=== PATIENT | male | born 1955 | race Caucasian/White ===

== ENCOUNTER 2023-10-12 10:07 | Outpatient (CLI) | payer MEDICARE, SELFPAY ==
--- NOTE | 2023-10-12 10:15 | CRLHL7_ITS ---
For Patients: As a result of the Century Cures Act, medical imaging exams and procedure reports are released immediately into your electronic medical record. You may view this report before your referring provider. If you have questions, please contact your health care provider. Indication: Left hip pain Procedure : Informed consent was obtained. The site was marked. Time-out was performed. The skin of the left hip was cleansed with ChloraPrep. A sterile drape was placed. 8 cc of 1 percent lidocaine was administered for superficial anesthesia. Subsequently a 22 gauge spinal needle was introduced into the left hip joint under intermittent fluoroscopic guidance 7 cc 1 percent lidocaine and 2 cc 80 milligram/cc Depo-Medrol then injected into the left hip joint. The needle was removed and hemostasis achieved with direct pressure. A dressing was placed. The patient tolerated the procedure well without immediate complication. Total fluoroscopy time 18 seconds. Impression: Successful fluoroscopically guided left hip injection with 80 milligrams of Depo-Medrol. Dictated by Rehan Cramer MD @ 10/12/2023 11:34:53 AM (Electronically Signed)
== END 2023-10-12 10:08 | disposition home or self-care (01) ==
LOC: RAD 10:08
PROVIDERS: PCP Family Medicine; Visit Provider Orthopaedic Surgery Sports Medicine
DX: M25.552 Pain in left hip (principal); M16.12 Unilateral primary osteoarthritis, left hip
CPT/HCPCS: 20610; 77002; J1030; Q9966

== ENCOUNTER 2023-11-14 09:30 | Outpatient (RCR) | payer MEDICARE, SELFPAY ==
--- NOTE | 2023-10-16 12:14 | PT.OPEX ---
[facility] [place] Outpatient Eval PT [facility] Outpatient Eval Start: 10/16/23 08:12 Freq: Status: Active Protocol: Document 10/16/23 08:13 AMS (Rec: 10/16/23 12:10 AMS [id number]) E-signed By Latricia Hall, PT Physical Therapy Outpatient Evaluation Insurance Information Recert Due Date 01/09/24 Insurance Name Medicare B,[employer] [facility] Medical Diagnosis Left hip osteoarthritis Treating Diagnosis Left hip pain Muscle weakness Left hip stiffness Difficulty walking Referring MD Artem Logan Subjective Subjective Van is a new patient in my office today. He is a pleasant 68yr old male. Presents with left hip pain. There is an asl interpreter present today. He states he is having sharp groin pain. He had an x-ray taken last week with Dr. Muller , in which Dr. Muller thought it was significant, but the radiologist read his osteoarthritis as mild. The pain is sharp, intermittent and relieves with rest. The pain is worse with bowling. The patient has tried Tylenol/ oral NSAIDs, rest, activity modification all with minimal and non-lasting relief. He is hoping to avoid surgery at this time. -Dr. Logna, , confirmed by patient Patient is a 68-year-old male who presents to physical therapy with primary concern of chronic left hip pain. This came on gradually in the last year, worsening this past month, without any known injury. He states the pain came on last fall when he was active with bowling and pickleball 1x/week. It is hard to walk the day after these activities and sore, so he no longer plays. He had an x-ray- guided cortisone injection on 10/12, and he reports some improvement with the injection ( or 04/27 to 3). Denies back pain or numbness/tingling . Pain characteristics: localized to the groin on left , aching, constant, improved with rest. Aggravating factors: bowling, walking longer than a block ( prior to injection), pickleball, squatting, sleeping on left side, lifting , standing, jogging Easing factors: rest, injection Prior level of function: independent for all mobility without gait aid, has cane but doesn't use it Previous treatments: cortisone injection (helpful), Aleve ( not helpful) Current functional limitations : bowling, walking longer than a block (prior to injection), pickleball, squatting, sleeping on left side, lifting , standing, jogging Red flags: denies hx of cancer Imaging: AP Pelvis and Cross- table lateral views of the left hip were obtained on 2023 from [facility], were ordered by a different physician, were reviewed by me on his phone, were corroborated with the radiology report, and show moderate osteoarthrosis left hip seen with joint space narrowing near the far lateral aspect of the hip joint of 50 -66%. Otherwise, decently preserved joint space centrally. No acute fractures avulsions. Small osteophytes . No signs of AVN. -Dr. Logan, 10/03/23 PMHx: right hip replacement 2016, bilateral knee replacements 2011 and 2013, mild stroke 25 years ago, now on blood thinners Social history/current exercise: None due to pain; previous to pain, walking the dogs a mile daily, pickleball 1x/week. , lives in one -level house, enjoys playing with his grandkids. Goals: He would like to avoid surgery if possible and improve pain and mobility. 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 BALANCE Single leg stance: ~1 sec B FUNCTIONAL MOBILITY Double leg squat: to 45 deg, pain in left hip/bilateral knees KNEE ROM Within normal limits B END RANGE QUAD CONTROL Straight leg raise: No quad lag, mild pain on L LUMBAR ROM Full and pain-free w/ exception of 50% limited into L lumbar rotation HIP ROM (R/L) Flexion: Mildly limited L Extension: Mildly limited B d/ t hip flexor tightness Internal Rotation: WNL/0 deg* External Rotation: WNL/WNL *pain in groin LE MMT: Hip flexion: R 5/5 L */5, strong but painful Hip abduction: R 4/5 L 3+/5 Hip extension: Able to perform DL bridge Knee flexion: R 5/5 L 4+/5 w/ mild discomfort Knee extension: R 5/5 L 4+/5 *pain in groin SPECIAL TEST Hip Labral/Intra-articular Pathology: -GMAALIEL: + left, groin -FADIR: + left, groin Muscle Length: -David Test: + B JOINT MOBILITY/PALPATION Mild tenderness to palpation over ASIS/hip flexor musculature on left, none over lateral hip Functional Test Performed & Score LEFS: 33/80 = 41% Assessment Assessment/Impression Pt is a 68 -year-old male who presents with concerns of chronic left hip pain and moderate to high severity and irritability. Signs and symptoms are likely indicating / consistent with left hip osteoarthritis confirmed by imaging. On exam, patient also demonstrates notable objective findings including limited hip ROM, pain with active hip flexion, impaired balance, antalgic gait, and decreased hip strength, leading to difficulties with bowling, walking longer than a block (prior to injection), pickleball, squatting, sleeping on left side, lifting , standing, jogging. Pt had x- ray guided cortisone injection 4 days ago with significant improvement in symptoms. asl interpreter was utilized and present for session. Educated pt on graded return to more active lifestyle, starting with 5-10 min per day of walking as symptoms allow. Patient is appropriate for skilled physical therapy services to address the above deficits. Pt was agreeable with plan of care and goals established. Primary Functional Limitations bowling, walking longer than a block, pickleball, squatting, sleeping on left side, lifting, standing, jogging Plan of Care Rehabilitation Potential Good Physical Therapy Goals In 2 sessions: Pt will demonstrate consistent HEP compliance to ensure progress in reaching established goals during course of care. In 8-10 sessions: Pt will be able to bend and lift household items from the floor to shoulder height to perform ADLs without pain. Patient will squat with pain levels < 3/10 displaying good control in order to participate in recreational activities. Pt will be able to walk up to or >1 mile with <4/10 pain. Pt will improve LEFS by 9pts for significant, meaningful improvement in symptoms. Coordination/Communication With Referral Source Treatment Plan/Direct Interventions Gait Training,Joint Mobilization,Manual Therapy, Neuromuscular Re-ed,Self-Care/ Home Management,Therapeutic Activities,Therapeutic Exercises Frequency/Duration 1x/week for 8-10 sessions Patient Will Be Discharged From Therapy Completion of LTG(s), Independent w/HEP, Independently Progressing Evaluation Billing Untimed Code Treatment Minutes 20 Complexity Moderate Certification Information Initial Certification Date 10/16/23 Ending Certification Date 01/14/24 Provider Signature Shows Agreement With POC & Medical Necessity Physician Signature & Date Requested Please Sign/Date Here Physician Comment/Change : Physician NPI Number #
== END 2024-01-09 10:31 | disposition home or self-care (01) ==
PROVIDERS: PCP Family Medicine; Visit Provider Orthopaedic Surgery Sports Medicine
DX: M16.12 Unilateral primary osteoarthritis, left hip (principal); M25.552 Pain in left hip; M62.81 Muscle weakness (generalized); M25.652 Stiffness of left hip, not elsewhere classified; R26.2 Difficulty in walking, not elsewhere classified; Z51.89 Encounter for other specified aftercare
CPT/HCPCS: 97110; 97140; 97162; 97530

== ENCOUNTER 2024-10-17 10:38 | Emergency (ER) | payer MEDICARE, SELFPAY ==
[2024-10-17] VITALS (11 sets, daily range): BP systolic 86–103; BP diastolic 61–71; PULSE 79–102; RESP 18; TEMP 37; O2SAT 94–96; BMI 34.0
--- OUTSIDE RECORDS SUMMARY | 2024-10-17 10:41 | XMS_ITS | Clinical Summary ---
Author Organization [facility] Address [place], [place] [address] Care Team Providers Care Manager Transfer Name Role Phone Josefina Crum DO Primary Care Provider [phone] Allergies No known active allergies Medications cyanocobalamin 1,000 mcg tablet Take 2,000 mcg by mouth once daily. Active aspirin (ECOTRIN) 81 mg enteric coated tablet Take 1 tablet by mouth once daily with a meal. 0 0 Active cholecalciferol (VITAMIN D) 1,000 unit capsule Take 1 capsule by mouth once daily. 0 0 Active ferrous sulfate 325 mg delayed release tablet Take 1 Tablet (325 mg) by mouth once daily with a meal. 90 Tablet 3 2 Active diclofenac topical (VOLTAREN) 1 % gelIndications:Chr onic pain of right knee Apply 2 g topically to affected area(s) 4 times daily. Apply to ankles 100 g 1 2 Active amLODIPine (NORVASC) 10 mg tabletIndications: Coronary artery calcification TAKE 1 TABLET BY MOUTH EVERY DAY 90 Tablet 2 4 Active clopidogreL (PLAVIX) 75 mg tabletIndications: H/O: CVA (cerebrovascular accident) TAKE 1 TABLET BY MOUTH ONCE DAILY. 90 Tablet 3 4 Active atorvastatin (LIPITOR) 10 mg tabletIndications: Hyperlipidemia, unspecified hyperlipidemia type TAKE 1 TABLET BY MOUTH EVERY DAY 90 Tablet 2 4 Active metoprolol succinate (TOPROL XL) 25 mg Sustained-Release tabletIndications: HTN (hypertension),Cor onary artery calcification Take 1 Tablet (25 mg) by mouth once daily. 90 Tablet 3 4 Active omeprazole (PRILOSEC) 20 mg Delayed-Release capsuleIndications :Gastritis and duodenitis Take 1 Capsule (20 mg) by mouth once daily before a meal. 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 Thought to be secondary to dirty needle use with tattoo. Deafness 02/17/2012 Hyperlipidemia 02/17/2012 H/O: CVA (cardiovascular accident) 02/17/2012 Encounters Date Type Department Care Team Description 10/17/2024 Orders Only [facility] [address] [place] [address] Emma Lamar, DO <No scans attached> 10/16/2024 1:30 PM RENAL DIETITIAN Nurse/Clinic Staff Only [facility] [address] [place] [place] [address] Infusion Therapy (Normal saline) 10/16/2024 7:43 AM RENAL DIETITIAN - 10/16/2024 11:59 PM RENAL DIETITIAN Hospital Encounter [facility] [address] [address] 10/16/2024 7:30 AM RENAL DIETITIAN Orders Only [facility] [address] [address] Lab, [facility] 10/16/2024 Travel 10/15/2024 Travel 10/15/2024 Telephone [facility] [address] [place] [address] Emma Lamar DO Appointment 10/14/2024 4:20 PM RENAL DIETITIAN Office Visit [facility] [address] [place] [address] Emma Lamar DO Stomach Ache (upset stomach); Fatigue 10/14/2024 Travel 09/27/2024 1:55 PM RENAL DIETITIAN Office Visit [facility] [address] [place] [address] Therese Ying MD URI (cough, Diarrhea, Started 2 weeks ago, no appetite ) 09/27/2024 Travel 08/09/2024 8:00 AM RENAL DIETITIAN Ancillary Procedure [facility] [address] [place] [address] 08/09/2024 Travel 07/30/2024 10:00 AM RENAL DIETITIAN Office Visit [facility] [address] [place] [address] Beverly Green MD Follow Up (Hyperlipidemia/Aor ta dilatation /US 04/18/2024) 07/30/2024 Travel from Last 3 Months Immunizations Name Administration Dates Next Due COVID-19 vaccine (Moderna 100mcg/0.5mL) PF, MDV 11/20/2020,10/23/2020 DT (Age < 7 years) 12/24/1999 Dtap-5 Pertussis Antigens 12/24/1999 Hepatitis A (Adult) 12/27/2007,12/27/2007 Influenza Virus, Unspecified 09/13/2016,02/19/20 12 Influenza, IIV3 (Age >=3 years) 02/19/2012 Influenza, Intradermal Inactivated 10/16/2012 Influenza, Intradermal, Quadrivalent, Pf 013 Pneumococcal Conj 20-valent (Prevnar 20) 022 Td (Age >=7 Years) 06/30/2007 Tdap 09/13/2016 Zoster (Shingrix-RZV, recombinant) 11/20/2020, Family History Medical History Relation Name Comments Cancer-colon Father In the year 200 0 No Known Problems Maternal Grandfather Other Maternal Grandmother Polio Osteoarthritis Mother Knee, hip Unknown Paternal Grandfather Unknown Paternal Grandmother No Known Problems Sister 1 Eating disorder Sister 2 Suicidality Sister 2 Relation Name Status Comments Father Maternal Grandfather Maternal Grandmother Mother Alive Paternal Grandfather Paternal Grandmother Sister 1 Sister 2 Social History Tobacco Use Types Packs/Day Years Used Date Smoking Tobacco: Former Cigarettes 0.5 10 Smokeless Tobacco: Never Tobacco Cessation:Counseling Given: Yes Comments:quit 40 years ago Alcohol Use Standard Drinks/Week Comments Yes 0 (1 standard drink = 0.6 oz pur e alcohol) 2-3 drinks on weekend PHQ-2 Answer Date Recorded PHQ-2 TOTAL SCORE 1 06/05/2024 Social Connections Answer Date Recorded Do you often feel lonely or isolated from those around you? 0 04/12/2024 Financial Resource Strain Answer Date R ecorded Difficulty of Paying Living Expenses 3 04/12/2024 Difficulty of Paying Living Expenses Not on file 04/12/2024 Food Insecurity Answer Date Recorded Do you worry your food will run out before you are able to buy more? 1 04/12/2024 Transportation Needs Answer Date Record ed Does lack of transportation keep you from medica l appointments? 1 04/12/2024 Does lack of transportation keep you from work, meetings or getting things that you need? 1 04/12/2024 Housing Stability Answer Date Recorded What is your housing situation today? 1 04/12/2024 Utilities Answer Date Recorded Do you have trouble paying f or utilities (for example, heat, electricity, water, phone)? 1 04/12/2024 Sex and Gender Information Value Date Recorded Sex Assigned at Not on file Legal Sex Male 8:29 AM RENAL DIETITIAN Gender Identity Not on file Sexual Orientation Not on file Obstetrics History Last Filed Vital Signs Vital Sign Reading Time Taken Comments Blood Pressure 107/68 10/16/2024 2:53 PM RENAL DIETITIAN Pulse 81 10/16/2024 2:53 PM RENAL DIETITIAN Temperature 36.8 C (98.3 F) 09/27/2024 1:58 PM RENAL DIETITIAN Respiratory Rate 16 11/02/2022 10:57 AM RENAL DIETITIAN Oxygen Saturation 97% 10/16/2024 2:53 PM RENAL DIETITIAN Inhaled Oxygen Concentration - - Weight 112.9 kg (249 lb) 10/14/2024 4:36 PM RENAL DIETITIAN Height 176 cm (5' 9.29) 06/05/2024 8:39 AM CDT Body Mass Index 36.46 06/05/2024 8:39 AM CDT Plan of Treatment Health Maintenance Due Date Last Done Comments RSV vaccine for adults or (1 - Risk 60-74 years 1-dose series) 2016 COVID-19 vaccine series ( season) 2024 09/02/2021, 11/20/2020, 10/23/2020 Influenza for age 65+ 05/19/2024 09/13/2016 , 02/19/2012, 02/19/2012 BMI (ht and wt on same day) for age 18+ 06/05/2025 06/05/2024, 09/26/2023, 04/21/2023, Additional history exists Depression screening for age 12+ 06/05/2025 06/05/2024, 04/12/2024, 04/21/2023, Additional history exists Medicare Wellness for age 65+ 06/06/2025, 04/21/2023, 02/23/2022 Tetanus booster 09/13/2026 09/13/2016, 06/30/2007 Colonoscopy through age 75 11/02/202711/02, 11/02/2022, 11/02/2022 Lipids for age 45-75 04/12/2029 04/12/2024, 04/21/2023, 01/26/2022, Additional history exists Tdap Completed 09/13/2016 Zoster (shingles) series for age 50+ Completed 11/20/2020, 05/19/2020 Hepatitis C screening for ag e 18-79 Completed 02/23/2022, 02/23/2022 Pneumococcal series for age 50+ Completed 2 AAA screening age 65-74 Completed 04/18/2024, 03/13 Medical Devices Implanted Type Area Cost Control Supervisor Device Identifier Shelf Expiration Date Model / Serial / Lot Patella 35mm All Poly Shaista - [id number] Implanted:Qty: 1 on 02/17/2012 by Som Correia MD at [facility] Total Joint Left: Knee [employer] 01/16/2020 5972-65-3 5# / / [id number] Cmnt 1/2 Dosehowmedica - [id number] Implanted:Qty: 1 on 02/17/2012 by Som Correia MD at [facility] Left: Knee [employer] 01/15/2014 6188-1-01 0# / / [id number] Cmnt Bone Surg Simplex - [id number] Implanted:Qty: 1 on 02/17/2012 by Som Correia MD at [facility] Left: Knee [employer] 06/17/2014 6191-1-01 0# / / [id number] Fem Lps F Lt Nexgen Flex Option Kit - [id number] Implanted:Qty: 1 on 02/17/2012 by Som Correia MD at [facility] Left: Knee [employer] 10/18/2021 5964-16-5 1# / / [id number] Ty Tib 056-10 Lps Monoblock - [id number] Implanted:Qty: 1 on 02/17/2012 by Som Correia MD at [facility] Left: Knee [employer] 03/17/2014 5886-56-1 0# / / [id number] Shell Hip Od54mm 3 Hole R3 Pe - [id number] Implanted:Qty: 1 on 02/02/2017 by Addy Locke MD at [facility] Right: Hip [employer] 12/01/2026 [id number]# / / [id number] Description:CHECKED JI Liner Hip Id36 Od54mm 20deg R3xlpe - [id number] Implanted:Qty: 1 on 02/02/2017 by Addy Locke MD at [facility] Right: Hip [employer] 10/10/2026 [id number]# / / [id number] Description:CHECKED JI Stem Hip 96k253hn Synergy Std Off Titnm Pors - [id number] Implanted:Qty: 1 on 02/02/2017 by Addy Locke MD at [facility] Right: Hip [employer] 09/01/2025 [id number]# / / [id number] Description:CHECKED JI Head Hip Od36mm +4 08/31 Oxinium Oxin - [id number] Implanted:Qty: 1 on 02/02/2017 by Addy Locke MD at [facility] Right: Hip [employer] 10/31/2026 [id number]# / / [id number] Description:CHECKED JI Procedures Procedure Name Priority Date/Time Associated Diagnosis Comments CBC WITH AUTO DIFFERENTIAL Routine 10/16/2024 7:34 AM RENAL DIETITIAN COMP METABOLIC PANEL Routine 10/16/2024 7:34 AM RENAL DIETITIAN COMP METABOLIC PANEL Routine 09/27/2024 2:37 PM RENAL DIETITIAN Acute diarrhea CBC WITH AUTO DIFFERENTIAL Routine 09/27/2024 2:37 PM RENAL DIETITIAN Acute diarrhea ECHO TTE COMPLETE WO CONTRAST Routine 08/09/2024 8:36 AM RENAL DIETITIAN Thoracic aortic aneurysm without rupture, unspecified part (HC) US ABD AORTA SCREENING Routine 04/18/2024 9:08 AM CDT Screening for AAA (aortic abdominal aneurysm) LIPID PANEL W REFLEX MEASURED LDL Routine 04/12/2024 11:12 AM CDT Screening cholesterol level COLONOSCOPY SCREENING Routine 11/02/2022 9:18 AM RENAL DIETITIAN Screening for colon cancer ANTI HCV Routine 02/23/2022 10:53 AM CDT Need for hepatitis C screening test from Last 3 Months or Most Recently Relevant to Health Maintenance Results * (ABNORMAL) CBC AND DIFFERENTIAL (10/16/2024 7:34 AM RENAL DIETITIAN) Only the most recent of2 resultswithin the time period is included. WHITE BLOOD CELL COUNT 11.4(H) 3.8 - 10.8 Thousand/u L [facility] RED BLOOD CELL COUNT 4.53 4.20 - 5.80 Million/uL [facility] HEMOGLOBIN 13.6 13.2 - 17.1 g/dL [facility] HEMATOCRIT 39.8 38.5 - 50.0 % [facility] MCV 87.9 80.0 - 100.0 fL [facility] MCH 30.0 27.0 - 33.0 pg [facility] MCHC 34.2 32.0 - 36.0 g/dL [facility] Comment: For adults, a slight decrease in the calculated MCHC value (in the range of 30 to 32 g/dL) is most likely not clinically significant; however, it should be interpreted with caution in correlation with other red cell parameters and the patient's clinical condition. RDW 13.4 11.0 - 15.0 % [facility] PLATELET COUNT 176 140 - 400 Thousand/u L [facility] MPV 9.5 7.5 - 12.5 fL [facility] ABSOLUTE NEUTROPHILS 4,799 1,500 - 7,800 cells/uL [facility] ABSOLUTE LYMPHOCYTES 5,563(H) 850 - 3,900 cells/uL [facility] ABSOLUTE MONOCYTES 787 200 - 950 cells/uL [facility] ABSOLUTE EOSINOPHILS 103 15 - 500 cells/uL [facility] ABSOLUTE BASOPHILS 148 0 - 200 cells/uL [facility] NEUTROPHILS 42.1 % [facility] LYMPHOCYTES 48.8 % [facility] MONOCYTES 6.9 % [facility] EOSINOPHILS 0.9 % [facility] BASOPHILS 1.3 % [facility] CBC (INCLUDES DIFF/PLT) COMMENTS [facility] Comment: Review of peripheral smear confirms automated results. 10/16/2024 7:34 AM RENAL DIETITIAN 10/16/2024 7:34 AM RENAL DIETITIAN Narrative [facility] - 10/17/2024 3:54 AM RENAL DIETITIAN FASTING:NO FASTING: NO us Emmaabdi Rod Detert DO HEMATOLOGY Final Resul t [employer] [facility] [address] [place] [address], [place] [phone] [facility] [address] [place] [address] * (ABNORMAL) COMP METABOLIC PANEL (10/16/2024 7:34 AM RENAL DIETITIAN) Only the most recent of2 resultswithin the time period is included. Pathologist [facility] GLUCOSE 84 65 - 139 mg/dL [facility] Comment: Non-fasting reference interval UREA NITROGEN (BUN) 12 7 - 25 mg/dL [facility] CREATININE 1.05 0.70 - 1.35 mg/dL [facility] EGFR 77 > OR = 60 mL/min/1. 73m2 [facility] BUN/CREATININE RATIO SEE NOTE: 6 - 22 (calc) [facility] Comment: Not Reported: BUN and Creatinine are within reference range. SODIUM 130(L) 135 - 146 mmol/L [facility] POTASSIUM 3.6 3.5 - 5.3 mmol/L [facility] CHLORIDE 93(L) 98 - 110 mmol/L [facility] CARBON DIOXIDE 24 20 - 32 mmol/L [facility] CALCIUM 8.4(L) 8.6 - 10.3 mg/dL [facility] PROTEIN, TOTAL 7.0 6.1 - 8.1 g/dL [facility] ALBUMIN 3.4(L) 3.6 - 5.1 g/dL [facility] GLOBULIN 3.6 1.9 - 3.7 g/dL (calc) [facility] ALBUMIN/GLOBULIN RATIO 0.9(L) 1.0 - 2.5 (calc) [facility] BILIRUBIN, TOTAL 2.0(H) 0.2 - 1.2 mg/dL [facility] ALKALINE PHOSPHATASE 90 35 - 144 U/L [facility] AST 48(H) 10 - 35 U/L [facility] ALT 31 9 - 46 U/L [facility] 10/16/2024 7:34 AM RENAL DIETITIAN 10/16/2024 7:34 AM RENAL DIETITIAN Narrative [facility] - 10/17/2024 3:08 AM RENAL DIETITIAN FASTING:NO FASTING: NO us Emma Rod Brianda DO CHEMISTRY Final Resul t [facility] [address] [place] [address], [facility] [address] [place] [address] * ECHO TTE COMPLETE WO CONTRAST (08/09/2024 8:36 AM RENAL DIETITIAN) AORTIC VALVE MEAN PG 7 mmHg EJECTION FRACTION 65 % LVEDD 4.9 cm EJECTION FRACTION 60 - 65% Anatomical Region Laterality Modality Ultrasound 08/09/2024 8:05 AM RENAL DIETITIAN Narrative 08/09/2024 9:56 AM RENAL DIETITIAN ECHOCARDIOGRAM VAN HERNÁNDEZ : 1955 69 years Study Date: 08/09/2024 8:05:00 AM Gender: M BP: 116/69 mmHg Height: 175.00 cm BSA: 2.34 m Weight: 122.00 kg Tech: JESSICA Referring MD: BEVERLY GREEN Site: [facility] Reading Location: MOBILE-OP Patient Location: Outpatient. Procedure: 2D, Color Doppler and Spectral Doppler. Indication for study: Thoracic aortic aneurysm without rupture, unspecified part Cardiac Rhythm: Regular.Study quality: Fair. Final Impressions: 1. LVEF estimate 60-65%. Normal LV size and wall thickness. 2. Normal RV size and global function. 3. No significant valvular abnormalities. 4. Normal PASP and RAP estimates. 5. Dilated aortic root [4.4 cm] and ascending aorta [4.5 cm]. Trileaflet aortic valve. Chamber Sizes and Function No resting regional wall motion abnormality visualized. Left atrial size is normal. Right ventricular cavity size is normal, global systolic RV function is normal. The right atrium is normal. Right atrial area is 12 cm . The pulmonary artery is of normal size and origin. The sinus of Valsalva is dilated. The ascending aorta is dilated. Valves, RV Pressures and Diastolic Function The aortic valve is calcified, no stenosis and no regurgitation. The mitral valve is normal in structure, no mitral regurgitation. Mitral annular calcification is present. Indeterminate pattern of LV diastolic filling. The tricuspid valve is normal in structure. Tricuspid regurgitation is trace regurgitation. The pulmonic valve is normal. Trace pulmonary regurgitation. Masses, Effusion, Shunts There is no pericardial effusion. The inferior vena cava is normal sized, respiratory size variation greater than 50%. No left to right shunting was detected by limited color flow Doppler interrogation of the interatrial septum. MEASUREMENTS AND CALCULATIONS 2-D Measurements and LV Function: LVID (d) 4.9 cm LV FS% (2D) 58 % LVID (s) 2.1 cm LVOT diameter 2.0 cm IVS (d) 1.2 cm HR 71 bpm LVPW (d) 1.1 cm LA Vol index 25 ml/m2 Ao Sinus 4.4 cm RA area 12 cm Asc Ao 4.5 cm LA 3.4 cm Diastology: Mitral Tissue Doppler Pulmonary veins E Peak 0.6 m/s e', Septum 0.06 m/s Pulm s 53.2 cm/s A Peak 0.6 m/s e', Lateral 0.08 m/s Pulm d 32.7 cm/s E/A 1.0 E/e' Average 8.71 Pulm s/d ratio 1.63 DT 256 msec Aortic Valve: Vmax 1.8 m/s THONG (V) 1.94 cm VTI 0.35 m THONG (I) 1.91 cm LVOT V max 1.1 m/s Max PG 13 mmHg LVOT VTI 0.20 m Mean PG 7 mmHg SV 67 ml Dim Index 0.58 SV index 29 ml/m CO 4.8 l/min CI 2.0 l/min/m Mitral Valve: MVA 3.0 cm MV P 1/2 74 msec MV Mean G 1 mmHg MV VTI 0.16 m Tricuspid Valve and estimated PA pressures: TAPSE 2.1 cm . This study was interpreted by an [facility] accredited facility. Final Procedure Note Aguilar Argueta MD - 08/09/2024 ECHOCARDIOGRAM VAN HERNÁNDEZ : 1955 69 years Study Date: 08/09/2024 8:05:00 AM Gender: M BP: 116/69 mmHg Height: 175.00 cm BSA: 2.34 m Weight: 122.00 kg Tech: JESSICA Referring MD: BEVERLY GREEN Site: [facility] Reading Location: MOBILE-OP Patient Location: Outpatient. Procedure: 2D, Color Doppler and Spectral Doppler. Indication for study: Thoracic aortic aneurysm without rupture, unspecified part Cardiac Rhythm: Regular.Study quality: Fair. Final Impressions: 1. LVEF estimate 60-65%. Normal LV size and wall thickness. 2. Normal RV size and global function. 3. No significant valvular abnormalities. 4. Normal PASP and RAP estimates. 5. Dilated aortic root [4.4 cm] and ascending aorta [4.5 cm]. Trileafletaortic valve. Chamber Sizes and Function No resting regional wall motion abnormality visualized. Left atrial sizeis normal. Right ventricular cavity size is normal, global systolic RVfunction is normal. The right atrium is normal. Right atrial area is 12cm . The pulmonary artery is of normal size and origin. The sinus ofValsalva is dilated. The ascending aorta is dilated. Valves, RV Pressures and Diastolic Function The aortic valve is calcified, no stenosis and no regurgitation. Themitral valve is normal in structure, no mitral regurgitation. Mitralannular calcification is present. Indeterminate pattern of LV diastolicfilling. The tricuspid valve is normal in structure. Tricuspidregurgitation is trace regurgitation. The pulmonic valve is normal. Tracepulmonary regurgitation. Masses, Effusion, Shunts There is no pericardial effusion. The inferior vena cava is normal sized,respiratory size variation greater than 50%. No left to right shunting wasdetected by limited color flow Doppler interrogation of the interatrialseptum. MEASUREMENTS AND CALCULATIONS 2-D Measurements and LV Function: LVID (d) 4.9 cm LV FS% (2D) 58 % LVID (s) 2.1 cm LVOT diameter 2.0 cm IVS (d) 1.2 cm HR 71 bpm LVPW (d) 1.1 cm LA Vol index 25 ml/m2 Ao Sinus 4.4 cm RA area 12 cm Asc Ao 4.5 cm LA 3.4 cm Diastology: Mitral Tissue Doppler Pulmonary veins E Peak 0.6 m/s e', Septum 0.06 m/s Pulm s 53.2 cm/s A Peak 0.6 m/s e', Lateral 0.08 m/s Pulm d 32.7 cm/s E/A 1.0 E/e' Average 8.71 Pulm s/d ratio 1.63 DT 256 msec Aortic Valve: Vmax 1.8 m/s THONG (V) 1.94 cm VTI 0.35 m THONG (I) 1.91 cm LVOT V max 1.1 m/s Max PG 13 mmHg LVOT VTI 0.20 m Mean PG 7 mmHg SV 67 ml Dim Index 0.58 SV index 29 ml/m CO 4.8 l/min CI 2.0 l/min/m Mitral Valve: MVA 3.0 cm MV P 1/2 74 msec MV Mean G 1 mmHg MV VTI 0.16 m Tricuspid Valve and estimated PA pressures: TAPSE 2.1 cm . This study was interpreted by an [facility] accredited facility. Final us Beverly Green MD ECHO ORD Final Re sult * US ABD AORTA SCREENING [[id number]] (04/18/2024 9:08 AM CDT) Anatomical Region Laterality Modality Abdomen, AORTA Ultrasound 04/19/2024 1:47 PM CDT Narrative 04/19/2024 1:47 PM CDT For Patients: As a result of the Century Cures Act, medical imaging exams and procedure reports are released immediately into your electronic medical record. You may view this report before your referring provider. If you have questions, please contact your health care provider. Examination: US abdominal aorta Indication: Abdominal aortic aneurysm screening. Technique: Camp[place]de scale and color Doppler images of the aorta and common iliac arteries are obtained. Comparison: None Findings: Proximal aorta: 2.5 x 2.4 cm Mid aorta: 2.3 x 2.6 cm Distal aorta: 2.2 x 2.0 cm Right common iliac artery: 1.4 x 1.5 cm Left common iliac artery: 1.5 x 1.3 cm Impression: No abdominal aortic aneurysm. Dictated by Rehan Cramer MD @ 04/19/2024 1:47:39 PM (Electronically Signed) Procedure Note Rehan Cramer MD - 04/19/2024 For Patients: As a result of the Cures Act, medical imagingexams and procedure reports are released immediately into your electronicmedical record. You may view this report before your referring provider.If you have questions, please contact your health care provider. Examination: US abdominal aorta Indication: Abdominal aortic aneurysm screening. Technique: Campoverde scale and color Doppler images of the aorta and common iliac arteriesare obtained. Comparison: None Findings: Proximal aorta: 2.5 x 2.4 cm Mid aorta: 2.3 x 2.6 cm Distal aorta: 2.2 x 2.0 cm Right common iliac artery: 1.4 x 1.5 cm Left common iliac artery: 1.5 x 1.3 cm Impression: No abdominal aortic aneurysm. Dictated by Rehan Cramer MD @ 04/19/2024 1:47:39 PM (Electronically Signed) us Josefina Crum DO US Final Result * LIPID PANEL W REFLEX MEASURED LDL (04/12/2024 11:12 AM CDT) CHOLESTEROL,TOTAL 163 100 - 199 mg/dL 04/12/2024 7:51 PM CDT [facility] Comment: Cholesterol, Total Reference Ranges Desirable <200 mg/dL Borderline 200-239 mg/dL High >=240 mg/dL TRIGLYCERIDES 83 <150 mg/dL 04/12/2024 7:51 PM CDT [facility] HDL CHOLESTEROL 49 >40 mg/dL 7:51 PM CDT [facility] NON-HDL CHOLESTEROL 114 <145 mg/dl 04/12/2024 7:51 PM CDT [facility] CHOL/HDL RATIO 3.33 <4.50 04/12/2024 7:51 PM CDT [facility] LDL CHOLESTEROL 97 <=130 mg/dL 04/12/2024 7:51 PM CDT [facility] VLDL CHOLESTEROL 17 <=30 mg/dL 04/12/2024 7:51 PM CDT [facility] PROVIDER ORDERED STATUS RANDOM 04/12/2024 7:51 PM CDT [facility] Blood BLOOD SPECIMEN / Unknown Venipuncture / Unknown 04/12/2024 11:12 AM CDT 04/12/2024 11:14 AM CDT us Josefina Puja Galiciaqra DO CHEMISTRY Final Result [facility] [address] [place] [address], [place] * COLONOSCOPY (11/02/2022 9:26 AM RENAL DIETITIAN) 11/02/2022 9:2 6 AM RENAL DIETITIAN Narrative Transcriptions Deshawn Evans MD - 11/02/2022 10:39 AM CST Patient Name: Van Hernández Procedure Date: 11/02/2022 Gender: Male Date of : 1955 Admit Type: Outpatient Procedure: Colonoscopy Proceduralist: Deshawn Evans MD , Ciara Vora RN(Nurse), Shona Andrade (Nurse) Referring MD: Josefina Crum Indications/Pre-Op Diagnosis: Screening for colorectal malignant neoplasm, Last colonoscopy: date unknown (unable to locate last colonoscopy report) Medications: Fentanyl 100 micrograms IV, Midazolam 3 mgIV, The level of sedation administered wasmoderate Procedure Description: The patient had risks, benefits and alternatives explained to andgave informed consent. The patient had a stable cardiopulmonary status and judged an adequate candidate for conscious sedation. The endoscope [id number] was passed through the anus andadvanced to the cecum, identified by appendiceal orifice and ileocecal valve.The colonoscopy was performed without difficulty. The patient toleratedthe procedure well. The quality of the bowel preparation was good. The ileocecal valve, appendiceal orifice, and rectum were photographed. Complications: No immediate complications. Estimated Blood Loss & Specimen: Estimated blood loss: none. Specimen collected - Yes and sent to Laboratory Findings: The perianal and digital rectal examinations were normal. Two sessile polyps were found in the ascending colon. The polyps were3 mm in size. These polyps were removed with a cold snare. Resectionand retrieval were complete. A 4 mm polyp was found in the cecum. The polyp was semi-pedunculated. The polyp was removed with a cold snare. Resection and retrieval were complete. A 3 mm polyp was found in the descending colon. The polyp wassessile. The polyp was removed with a cold snare. Resection and retrieval were complete. The exam was otherwise without abnormality. Impressions/Post-Op Diagnosis: - Two 3 mm polyps in the ascending colon, removed with a cold snare. Resected and retrieved. - One 4 mm polyp in the cecum, removed with a cold snare. Resectedand retrieved. - One 3 mm polyp in the descending colon, removed with a cold snare. Resected and retrieved. - The examination was otherwise normal. Recommendation: - Patient has a contact number available for emergencies. The signsand symptoms of potential delayed complications were discussed with the patient. Return to normal activities tomorrow. Written discharge instructions were provided to the patient. - Resume previous diet. - Continue present medications. - Await pathology results. - Repeat colonoscopy is recommended. The colonoscopy date will be determined after pathology results from today's exam become available for review. Moderate Sedation: A time out was performed before the procedure. Moderate (conscious) sedation was administered by the endoscopy nurse and supervised bythe endoscopist. The following parameters were monitored: oxygensaturation, heart rate, blood pressure, EKG, CO2, respiratory rate, adequacy of pulmonary ventilation and reponse to care. Please refer to the patient's medical record flowsheets and nursing notes for moderate sedation details. Total physician intraservice time was 26 minutes. Deshawn Evans MD 11/02/2022 10:39:17 AM This report has been signed electronically. Note Initiated On: 11/02/2022 9:26 AM Procedure Code(s): --- Professional --- 67052, Colonoscopy, flexible; with removalof tumor(s), polyp(s), or other lesion(s) bysnare technique Diagnosis Code(s): --- Professional --- Z12.11, Encounter for screening formalignant neoplasm of colon D12.2, Benign neoplasm of ascending colon D12.0, Benign neoplasm of cecum D12.4, Benign neoplasm of descending colon CPT copyright 2020 [employer]. All rights reserved. The codes documented in this report are preliminary and upon label press operator reviewmay be revised to meet current compliance requirements. Scope In: 10:11:58 AM Scope Withdrawal Time 0 hours 12 minutes 51 seconds Scope Out: 10:34:17 AM us Deshawn Evans MD PROCEDURE ORD Final Res ult * (ABNORMAL) ANTI HCV (02/23/2022 10:53 AM CDT) HEPATITIS C ANTIBODY Reactive, Preliminary Positive(A) Non-React tio 02/24/2022 6:27 AM CDT [facility] Comment:Presumptive evidence of antibodies to HCV. Reflexed to HCV RNA Quant (See separate report). Blood BLOOD SPECIMEN / Unknown Venipuncture / Unknown 02/23/2022 10:53 AM CDT 02/23/2022 10:53 AM CDT us Josefina Crum DO SEND OUTS Final Result [employer] [facility] [address] [place] [address], [place] from Last 3 Months or Most Recently Relevant to Health Maintenance Additional Health Concerns Infection Onset Date Last Indicated Rule-Out Stool Pathogen 09/27/2024 09/27/19 25 Insurance MEDICARE PART A HB ONLY [facility] Advance Directives * Full Code (Latest Code Status on File) Date Activated Date Inactivated Comments 02/02/2017 7:36 AM 02/04/2017 5:49 PM * Full Code Date Activated Date Inactivated Comments 02/02/2017 5:10 AM 02/02/2017 7:36 AM * Full Code Date Activated Date Inactivated Comments 02/17/2012 9:53 AM 02/20/2012 1:58 PM * Full Code Date Activated Date Inactivated Comments 02/17/2012 5:56 AM 02/17/2012 9:53 AM Care Teams Manager Transfer Relationship Specialty Start Date End Date Josefina Crum DO [address] [place] [address] PCP - General Family Practice 01/26/22
--- NOTE | 2024-10-17 12:32 | ED.GENADULT ---
HPI - General Adult General Chief complaint: Abdominal Pain Stated complaint: abdominal pain/diarrhea Time Seen by Provider: 10/17/24 11:56 History of Present Illness HPI narrative: 69-year-old male comes in reporting recurrent diarrhea episodes over the past month. He was seen at [facility] yesterday and received IV fluids. Initially he was diagnosed with a norovirus infection. He had a large explosive diarrhea episode this morning. He does not report any nausea or vomiting or abdominal pain currently. He arrives with systolic blood pressure at 86. He is reporting lightheadedness. He is on a number of antihypertensive medicines and states that none of these are new. His only new medicine recently is omeprazole. 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 Related Data Home Medications ?Medication ?Instructions ?Recorded ?Confirmed amlodipine 10 mg tablet 10 mg PO DAILY 10/03/23 10/17/24 atorvastatin 10 mg tablet 10 mg PO DAILY 10/03/23 10/17/24 clopidogrel 75 mg tablet 75 mg PO DAILY 10/03/23 10/17/24 metoprolol succinate 25 mg 25 mg PO DAILY 10/03/23 10/17/24 tablet,extended release 24 hr omeprazole 20 mg capsule,delayed 20 mg PO DAILY 10/17/24 10/17/24 release Previous Rx's ?Medication ?Instructions ?Recorded diphenoxylate-atropine 2.5 1 tab PO TID PRN diarrhea #10 tabs 10/17/24 mg-0.025 mg tablet (Lomotil) Allergies Allergy/AdvReac Type Severity Reaction Status Date / Time No Known Drug Allergies Allergy Verified 10/17/24 11:40 Review of Systems Status of ROS: Reports: 10 or more systems reviewed and unremarkable except as noted in History and below Narrative: Constitutional: No fevers, no weight gain or loss. Eyes: No discharge. No vision changes. HENT: No congestion, no sore throat, no ear pain. Cardiovascular: No chest pain, no palpitations. Respiratory: No shortness of breath, no wheezes, no cough. Gastrointestinal: Occasional abdominal pain, no vomiting. Diarrhea is recurrent. Genitourinary: No dysuria, no hematuria. Musculoskeletal: Normal range of motion. Skin: No rashes, no pruritis. Neurological: No dizziness, weakness, sensory change, speech change. Endo/Heme/Allergies: No bruising or bleeding. No polydipsia. Pysch: no suicidality, no anxiety, no insomnia. All other systems reviewed and are negative. [facility] Medical History (Updated 10/17/24 @ 15:42 by Gualberto Porter MD) DVT (deep venous thrombosis) ?I82.409 - Acute embolism and thrombosis of unspecified deep veins of unspecified lower extremity (ICD-10) Surgical History (Updated 10/03/23 @ 10:06 by Katelin Barrow ~ [facility]) History of bilateral knee replacement (~2011) ?Z96.653 - Presence of artificial knee joint, bilateral (ICD-10) History of total right hip replacement (2017) ?Z96.641 - Presence of right artificial hip joint (ICD-10) Social History (Updated 10/03/23 @ 10:04 by Katelin Barrow ~ [facility]) Smoking Status: Former smoker What tobacco products do you use: cigarettes Smoking quit date/years: >15 years ago Do you use any of these nicotine containing products: None Second hand tobacco smoke exposure: No Exam Narrative: Exam Narrative: Constitutional: Well-developed, well-nourished, no acute distress. HEENT: Normocephalic, atraumatic. Neck: Normal range of motion. Nontender. Supple. Heart: Regular. No murmurs. Normal rate. Intact distal pulses. Lungs: Clear to auscultation. No chest discomfort. No wheezes, rhonchi, or rales. Abdomen: Normal bowel sounds. Nontender. No rebound tenderness. Genitalia: Deferred. Back: No midline tenderness. Normal range of motion. Extremities: Normal range of motion. No injury. Skin: Intact. No rash. Warm. No erythema or pallor. Neurologic: No altered sensation. No weakness. Alert and oriented. Psychiatric: No suicidality. No anxiety or depression. No insomnia. Nursing notes and vitals signs are reviewed. Const: Vital Signs, click to edit/add: Vital Signs - 24 hr 10/17/24 11:22 10/17/24 14:00 10/17/24 14:02 Temperature 98.6 F Pulse Rate 79 Pulse Rate [Pulse Oximeter] 102 H Respiratory Rate 18 Blood Pressure Blood Pressure [Ri ght Upper Arm] 86/61 L 102/71 Pulse Oximetry 96 96 Oxygen Delivery Me thod Room Air 10/17/24 14:15 10/17/24 14:22 10/17/24 14:30 Temperature Pulse Rate 84 80 82 Pulse Rate [Pulse Oximeter] Respiratory Rate 18 Blood Pressure 95/66 Blood Pressure [Ri ght Upper Arm] Pulse Oximetry 96 96 95 Oxygen Delivery Me thod Course Vital Signs Vital signs: Initial Vital Signs Temperature 98.6 F 10/17/24 11:22 Temperature Source Temporal Artery Scan 10/17/24 11:22 Pulse Rate 102 H 10/17/24 11:22 Respiratory Rate 18 10/17/24 11:22 Blood Pressure 86/61 L 10/17/24 11:22 Blood Pressure Mean 69 L 10/17/24 11:22 Blood Pressure Position Sitting 10/17/24 11:22 Pulse Oximetry 96 10/17/24 11:22 Oxygen Delivery Method Room Air 10/17/24 11:22 Vital Signs Temperature 98.6 F 10/17/24 11:22 Pulse Rate 102 H 10/17/24 11:22 Respiratory Rate 18 10/17/24 11:22 Blood Pressure 86/61 L 10/17/24 11:22 Pulse Oximetry 96 10/17/24 11:22 Oxygen Delivery Method Room Air 10/17/24 11:22 Temperature 98.6 F 10/17/24 11:22 Pulse Rate 82 10/17/24 14:30 Respiratory Rate 18 10/17/24 14:22 Blood Pressure 95/66 10/17/24 14:22 Pulse Oximetry 95 10/17/24 14:30 Oxygen Delivery Method Room Air 10/17/24 11:22 Medications Administered Medications: Discontinued Medications Generic Name Dose Route Start Last Admin Trade Name Freq PRN Reason Stop Dose Admin Sodium Chloride 1,000 mls @ 1,000 mls/hr 10/17/24 12:30 10/17/24 14:32 0.9 % Sodium Chloride 1000 Ml IV 10/17/24 13:29 Infused .Q1H HAYDEN Infusion Sodium Chloride 1,000 mls @ 1,000 mls/hr 10/17/24 14:30 10/17/24 14:32 0.9 % Sodium Chloride 1000 Ml IV 10/17/24 15:29 1,000 mls/hr .Q1H HAYDEN Administration Ondansetron HCl 4 mg 10/17/24 12:29 10/17/24 13:00 Ondansetron 2 Mg/Ml Inj IVP 10/17/24 12:30 4 mg ONCE ONE Administration Medical Decision Making MDM Narrative Medical decision making narrative: This patient comes in reporting diarrhea and lightheadedness. He does have lower blood pressure on arrival and borderline tachycardia. An IV was established where he received 2 L of normal saline. This brought about improvement in his symptoms and blood pressure. The patient is on several antihypertensives and may need to have this re-evaluated. I advised him to hold his amlodipine and follow up with his primary physician in the next week or 2. He is okay to be discharged home. His sodium was a bit low but he did receive normal saline which should help some with that. I did provide a prescription for Lomotil but recommended they use Imodium preferably for controlling diarrhea. Lab Data Labs: Lab Results 10/17/24 Range/Units 13:01 WBC 11.16 H (4.50-11.00) K/uL RBC 4.13 L (4.30-5.90) m/uL Hgb 12.2 L (13.5-17.5) gm/dL Hct 35.9 L (37.0-53.0) % MCV 87 (80-100) fL MCH 30 (26-34) pg MCHC 34 (32-36) gm/dL RDW Coeff of Eliseo 14.2 (11.5-15.5) % Plt Count 151 (140-440) K/uL Neut % (Auto) 41.2 L (42.0-72.0) % Lymph % (Auto) 51.6 H (20-44) % [place] % (Auto) 6.0 (0.0-11.0) % Eos % (Auto) 0.5 (0.0-7.0) % Baso % (Auto) 0.3 (0.0-3.0) % Neut # (Auto) 4.60 (1.7-7.0) K/uL Lymph # (Auto) 5.80 H (0.90-2.90) K/uL [place] # (Auto) 0.70 (0.00-0.90) K/UL Eos # (Auto) 0.10 (0.00-0.50) K/uL Baso # (Auto) 0.00 (0.00-0.30) K/uL Abs Immat Gran (auto) 0.00 (0.00-0.30) K/uL Imm/Tot Granulo (auto) 0.4 % Diff Slide Review Acceptable Review (Acceptable) Sodium 128 L (135-149) mmol/L Potassium 3.4 L (3.6-5.1) mmol/L Chloride 96 (96-114) mmol/L Carbon Dioxide 21 (20-32) mmol/L Anion Gap 11 (7-15) mEq/L BUN 12 (7-30) mg/dL Creatinine 1.0 (0.5-1.5) mg/dL Estimated Creat Clear 70.70 Estimated GFR 82 ml/min Glucose 84 (60-115) mg/dL Lactate 1.5 (0.5-1.9) mmol/L Calcium 8.0 L (8.4-10.6) mg/dL Discharge Plan Discharge Clinical Impression: Fluid volume depletion, Diarrhea Patient Disposition: Home, Self-Care Condition: Improved Additional Instructions: Use Imodium preferably for diarrhea. Lomotil may be used as needed also for additional relief of diarrhea. Take fluids and increase diet as tolerated. Follow up with MD in 1-2 weeks to recheck blood pressure and medications. Prescriptions: New diphenoxylate-atropine [Lomotil] 2.5-0.025 mg tablet 1 tab PO TID PRN (Reason: diarrhea) Qty: 10 0RF No Action clopidogrel 75 mg tablet 75 mg PO DAILY amlodipine 10 mg tablet 10 mg PO DAILY atorvastatin 10 mg tablet 10 mg PO DAILY metoprolol succinate 25 mg tablet extended release 24 hr 25 mg PO DAILY omeprazole 20 mg capsule,delayed release(DR/EC) 20 mg PO DAILY Follow Up/Referrals: Josefina Crum DO [Primary Care Provider] - Stand Alone Forms: [email or web address] Info Instructions
[2024-10-17] MEDS: ONDANSETRON 2 MG/ML inj 4 MG IVP (13:00)
[2024-10-17] MEDS: 0.9 % SODIUM CHLORIDE 1000 ml 1,000 ML IV ×2 (13:00→14:32)
[2024-10-17 13:09] LABS: Lactate* 1.5 mmol/L (0.5-1.9)
[2024-10-17 13:12] LABS: Basophils Percent Auto 0.3 % (0.0-3.0); Eosinophils Percent Auto 0.5 % (0.0-7.0); Hematocrit 35.9 % (37.0-53.0); Hemoglobin* 12.2 gm/dL (13.5-17.5); Immature Granulocytes Pct Auto 0.4 %; Lymphocytes Percent Auto 51.6 % (20-44); Mean Corpuscular HGB Conc 34 gm/dL (32-36); Mean Corpuscular Hemoglobin 30 pg (26-34); Mean Corpuscular Volume 87 fL (80-100); Neutrophils Percent Auto 41.2 % (42.0-72.0); Platelet Count* 151 K/uL (140-440); RDW Coefficient of Variation % 14.2 % (11.5-15.5); Red Blood Count 4.13 m/uL (4.30-5.90); White Blood Count* 11.16 K/uL (4.50-11.00)
[2024-10-17 13:27] LABS: Chloride* 96 mmol/L (96-114); Potassium* 3.4 mmol/L (3.6-5.1); Sodium* 128 mmol/L (135-149)
[2024-10-17 13:30] LABS: Anion Gap 11 mEq/L (7-15); Blood Urea Nitrogen* 12 mg/dL (7-30); Carbon Dioxide* 21 mmol/L (20-32); Estimated Glomerular Filt Rate 82 ml/min; Glucose* 84 mg/dL (60-115)
[2024-10-17 13:48] LABS: Slide Review Reflex Yes
[2024-10-17 14:36] LABS: Slide Review Acceptable Review (Acceptable)
== END 2024-10-17 16:40 | disposition home or self-care (01) ==
PROVIDERS: Emergency Provider Emergency Medicine Emergency Medical Services; PCP Family Medicine
DX: R19.7 Diarrhea, unspecified (principal); E86.9 Volume depletion, unspecified
CPT/HCPCS: 36415; 80048; 83605; 85025; 87040; 96374; 99284; J2405; J7030

== ENCOUNTER 2024-10-22 15:05 | Inpatient (IN) | payer MEDICARE, SELFPAY ==
[2024-10-22 16:00] VITALS: BP 110/73; PULSE 93; RESP 18; TEMP 36.6; O2SAT 96; BMI 38.2
[2024-10-22 16:38] VITALS: BP 86/59; BP 95/64; BP 99/67; PULSE 102; PULSE 91; PULSE 93
[2024-10-22 16:46] LABS: Basophils Absolute Auto 0.04 K/uL (0.00-0.30); Basophils Percent Auto 0.4 % (0.0-3.0); Eosinophils Absolute Auto 0.04 K/uL (0.00-0.50); Eosinophils Percent Auto 0.4 % (0.0-7.0); Hematocrit 33.6 % (37.0-53.0); Hemoglobin* 11.3 gm/dL (13.5-17.5); Immature Granulocytes Abs Auto 0.04 K/uL (0.00-0.30); Immature Granulocytes Pct Auto 0.4 %; Lymphocytes Percent Auto 45.7 % (20-44); Mean Corpuscular HGB Conc 34 gm/dL (32-36); Mean Corpuscular Hemoglobin 29 pg (26-34); Mean Corpuscular Volume 87 fL (80-100); Monocytes Percent Auto 5.8 % (0.0-11.0); Neutrophils Absolute Auto 4.36 K/uL (1.7-7.0); Neutrophils Percent Auto 47.3 % (42.0-72.0); Platelet Count* 111 K/uL (140-440); RDW Coefficient of Variation % 15.1 % (11.5-15.5); Red Blood Count 3.86 m/uL (4.30-5.90); White Blood Count* 9.25 K/uL (4.50-11.00)
[2024-10-22 16:48] LABS: Albumin* 2.6 g/dL (3.3-5.0); Chloride* 97 mmol/L (96-114); Slide Review Reflex Yes; Sodium* 127 mmol/L (135-149)
[2024-10-22 16:49] LABS: Potassium* 3.3 mmol/L (3.6-5.1)
[2024-10-22 16:51] LABS: Alkaline Phosphatase* 82 U/L (40-150); Anion Gap 7 mEq/L (7-15); Aspartate Amino Transferase* 98 U/L (12-35); Bilirubin Total* 2.4 mg/dL (0.1-1.5); Carbon Dioxide* 23 mmol/L (20-32); Creatinine* 0.9 mg/dL (0.5-1.5); Estimated Glomerular Filt Rate 93 ml/min; Total Protein* 5.8 g/dL (6.0-8.3)
[2024-10-22 16:52] LABS: Alanine Aminotransferase* 47 U/L (4-50); Blood Urea Nitrogen* 14 mg/dL (7-30); Calcium* 7.4 mg/dL (8.4-10.6); Glucose* 101 mg/dL (60-115); INR 1.37 (0.91-1.10); Prothrombin Time 17.8 Seconds
[2024-10-22 16:54] LABS: C Reactive Protein* 6.9 mg/dL (0.5-1.0)
[2024-10-22 17:03] LABS: Troponin I* 0.03 ng/mL (0.01-0.04)
[2024-10-22 17:08] LABS: Procalcitonin* 0.23 ng/mL (<0.50)
[2024-10-22] MEDS: 0.9 % SODIUM CHLORIDE 1000 ml 1,000 ML 500 ML IV (17:36)
[2024-10-22] MEDS: ENOXAPARIN 120 MG/0.8 ML INJ SUBCUT (17:36)
--- NOTE | 2024-10-22 18:17 | P.IMHP_ITS ---
Hospitalist- H&P: HPI History of Present Illness Time Seen by Provider: 15:50 Date Seen: 10/22/24 Chief complaint: Hypotension Narrative: Van Barrett is a 69 year old male with a history of coronary artery disease, alcohol abuse, hearing loss, hepatitis-C, cerebrovascular accident, colon polyp, hyperlipidemia, and vitamin B deficiency who started having URI symptoms and diarrhea at the end of August and has had ongoing dizziness and unintentional weight loss since then. He saw Dr. Hammonds in clinic on 09/27, Dr. Johnson to on 10/14 at which time he got IV fluids, went to the emergency room on 10/17 with persistent diarrhea, dizziness, and low blood pressure for which he got 2 L IV fluids and Lomotil. Diarrhea finally stopped a few days ago, but he continues to have dizziness whenever he stands up and fatigue. After the ER visit, he did stop amlodipine but continues to take metoprolol. Today he saw his primary care provider in clinic for persistent symptoms continues to note weight loss, now around 20 lb total. His blood pressure was low, 88/58 labs were drawn, but they were all sent out and are not expected to result until tomorrow. He is also complaining of abdominal pain in the center of his abdomen. He denies nausea, but still does not have much of an appetite. A CT abdomen and pelvis was obtained which showed likely clot in the right common femoral vein the and right inguinal vein. He is on Plavix for history of coronary artery disease with stents. For low blood pressure he was given 2 L of IV fluids in the clinic although the patient tells me he received 1.5 L. Although his blood pressure has improved, he continues to endorse dizziness with standing. Review of Systems Status of ROS: Reports: 10 or more systems reviewed and unremarkable except as noted in History and below [facility] Medical History (Updated 10/23/24 @ 01:55 by Sadaf Kat MD) Obesity ?E66.9 - Obesity, unspecified (ICD-10) Ascending aorta dilatation ?I77.810 - Thoracic aortic ectasia (ICD-10) Rheumatoid arthritis ?M06.9 - Rheumatoid arthritis, unspecified (ICD-10) Colon polyp ?K63.5 - Polyp of colon (ICD-10) Chronic pain ?G89.29 - Other chronic pain (ICD-10) CVA (cerebral vascular accident) ?I63.9 - Cerebral infarction, unspecified (ICD-10) Hyperlipidemia ?E78.5 - Hyperlipidemia, unspecified (ICD-10) Deafness ?H91.90 - Unspecified hearing loss, unspecified ear (ICD-10) Hepatitis C ?B19.20 - Unspecified viral hepatitis C without hepatic coma (ICD-10) Surgical History History of bilateral knee replacement (~2011) ?Z96.653 - Presence of artificial knee joint, bilateral (ICD-10) History of total right hip replacement (2017) ?Z96.641 - Presence of right artificial hip joint (ICD-10) Family History (Updated 10/23/24 @ 01:31 by Sadaf Kat MD) Father Colon cancer Social History (Updated 10/23/24 @ 01:32 by Sadaf Kat MD) Narrative: Lives independently. Five pack year history of smoking, quit over 40 years ago. Occasional alcohol use. What is your current living situation?: I presently have a place to live Problems where you live: no known problems Problems where you live details: N/A In the past 12 months, utilities in danger of being shut off: no In past 12 months, lack of transportation kept you from medical appts, meetings, work, or getting things needed for daily living: no In the past 12 mos, have been you worried that your food would run out before you had money to buy more?: never true In the past 12 mos, the food you bought just didn't last and you didn't have money to buy more?: never true Smoking Status: Former smoker What tobacco products do you use: cigarettes Smoking quit date/years: >15 years ago Do you use any of these nicotine containing products: None Second hand tobacco smoke exposure: No Non-prescribed substance use: denies use Caffeine: Yes How often does anyone, including family, friends and others, physically hurt you : never How often does anyone, including family, friends and others, insult or talk down to you: never How often does anyone, including family, friends and others, threaten you with harm: never How often does anyone, including family, friends and others, scream or curse at you: never Meds Home Medications and Allergies Home Medications ?Medication ?Instructions ?Recorded ?Confirmed ?Type amlodipine 10 mg tablet 10 mg PO DAILY 10/03/23 10/22/24 History atorvastatin 10 mg tablet 10 mg PO DAILY 10/03/23 10/22/24 History clopidogrel 75 mg tablet 75 mg PO DAILY 10/03/23 10/22/24 History metoprolol succinate 25 mg 25 mg PO DAILY 10/03/23 10/22/24 History tablet,extended release 24 hr omeprazole 20 mg capsule,delayed 20 mg PO DAILY 10/17/24 10/22/24 History release aspirin 81 mg tablet,delayed 81 mg PO DAILY 10/22/24 10/22/24 History release (Camryn Low Dose Aspirin) cholecalciferol (vitamin D3) 25 25 mcg PO DAILY 10/22/24 10/22/24 History mcg (1,000 unit) capsule cyanocobalamin (vitamin B-12) 1,000 mcg PO DAILY 10/22/24 10/22/24 History 1,000 mcg capsule ferrous sulfate 325 mg (65 mg 325 mg PO DAILY 10/22/24 10/22/24 History iron) tablet (Zonia-Time) Allergies Allergy/AdvReac Type Severity Reaction Status Date / Time No Known Drug Allergies Allergy Verified 10/17/24 11:40 Exam Narrative: Exam Narrative: General: No acute distress. Awake alert oriented x3. Deaf, using ASL. Obese. HEENT: Normocephalic atraumatic, pupils equally round and reactive to light and accommodation. Oropharynx clear. Mucous membranes are dry. No cervical lymphadenopathy, thyromegaly or carotid bruits. No JVD. Cardiovascular: Regular rate and rhythm. No murmurs, gallops, or rubs. Chest: No increased work of breathing. Clear to auscultation bilaterally. No crackles or wheezes. Abdomen: Bowel sounds present. Soft, nondistended, tender in the mid abdomen near the umbilicus, no rebound tenderness or guarding. No hepatosplenomegaly or masses. Extremities: No edema, no cyanosis or clubbing. Skin: No jaundice, no pallor, no rashes on visible skin. Const: Vital Signs, click to edit/add: Vital Signs - 24 hr 10/22/24 16:38 Pulse Rate [orthos tatic lying] 93 Pulse Rate [orthos tatic sitting] 91 Pulse Rate [orthos tatic standing] 102 H Blood Pressure [or thostatic lying] 95/64 Blood Pressure [or thostatic sitting] 99/67 Blood Pressure [or thostatic standing ] 86/59 L Hospitalist - H&P: Result Labs Labs: Short CBC 10/22/24 Range/Units 16:26 WBC 9.25 (4.50-11.00) K/uL Hgb 11.3 L (13.5-17.5) gm/dL Hct 33.6 L (37.0-53.0) % Plt Count 111 L (140-440) K/uL BMP 10/22/24 16:26 Sodium 127 L Potassium 3.3 L Chloride 97 Carbon Dioxide 23 BUN 14 Creatinine 0.9 Glucose 101 Calcium 7.4 L Cardiac Enzymes 10/22/24 Range/Units 16:26 Troponin I 0.03 (0.01-0.04) ng/mL Liver Function 10/22/24 Range/Units 16:26 Total Bilirubin 2.4 H (0.1-1.5) mg/dL AST 98 H (12-35) U/L ALT 47 (4-50) U/L Alkaline Phosphatase 82 (40-150) U/L Albumin 2.6 L (3.3-5.0) g/dL 10/17/24 blood culture: No growth after 5 days. Assessment and Plan Assessment and plan (1) DVT (deep venous thrombosis): Problem comment: - likely right inguinal and common femoral vein clot seen on CT abdomen and pelvis in the clinic today. Patient is not hypoxic, but does occasionally have a slightly elevated heart rate. He does not have any chest pain or shortness of breath or palpitations. Will check CT PE protocol tomorrow as he had IP dye all ready today for the CT abdomen pelvis. - due to blood pressure instability I will start Lovenox rather than oral anticoagulation. Status: Suspected (2) Orthostatic hypotension: Problem comment: - secondary to dehydration - lactate is elevated for which fluid bolus was given in lactate has improved. Will start IV fluids for maintenance and give further fluid boluses as necessary for hypotension Status: Acute (3) Dehydration: Problem comment: - secondary diarrhea, treated as above Status: Acute (4) Diarrhea: Problem comment: - suspect secondary to recent viral syndrome, this has since resolved, he has not had any bowel movement for several days now Status: Resolved (5) Anemia: Problem comment: - no active bleeding, normocytic, platelets are low and INR is slightly elevated. Recheck hemoglobin in the morning. Monitor for bleeding. Status: Acute (6) Thrombocytopenia: Problem comment: - possibly secondary to prolonged viral illness, blood morphology was sent out from clinic today for pathology, monitor especially while on anticoagulation Status: Acute (7) Hyponatremia: Problem comment: - suspect secondary to dehydration, hydrate and monitor Status: Acute (8) Hypokalemia: Problem comment: Replace orally if tolerated, recheck in the morning Status: Acute (9) LFTs abnormal: Problem comment: Total bilirubin chronically elevated, but usually in the 1.3-1.4 range. AST and INR are also mildly elevated. Unclear if this is new. May be related to recent hypotension and orthostasis, shocky liver. Patient also has known history of hepatitis-C. Hydrate and recheck LFTs in the morning. Status: Acute
[2024-10-22 19:00] VITALS: BP 97/67; PULSE 89
[2024-10-22] MEDS: ATORVASTATIN CALCIUM 10 MG TABLET PO (19:23)
[2024-10-22 19:25] LABS: PCR FLU A Negative PCR FLU A (Negative); PCR FLU B Negative PCR FLU B (Negative); PCR RSV Negative PCR RSV (Negative); SARS PCR* Negative SARS-CoV-2 (Negative)
[2024-10-22 19:32] LABS: Lactate* 1.3 mmol/L (0.5-1.9)
[2024-10-22 19:52] LABS: Partial Thromboplastin Time* 50 Seconds (23-33)
[2024-10-22] MEDS: SODIUM CHLORIDE 0.9 % (FLUSH) 10 ML SYRINGE 5 ML IVF (20:26)
[2024-10-22] MEDS: 0.9 % SODIUM CHLORIDE 1000 ml 1,000 ML 75 ML IV (20:26)
[2024-10-22 23:05] LABS: Slide Review Acceptable Review (Acceptable)
[2024-10-22 23:42] VITALS: BP 83/56; PULSE 88; RESP 16; TEMP 36.7; O2SAT 90
[2024-10-23] VITALS (13 sets, daily range): BP systolic 77–110; BP diastolic 44–75; PULSE 64–107; RESP 16; TEMP 36.3–36.7; O2SAT 90–99
[2024-10-23] MEDS: 0.9 % SODIUM CHLORIDE 1000 ml 1,000 ML IV (00:30)
[2024-10-23] MEDS: POTASSIUM BICARB 25 MEQ EFFERVESCENT TAB PO ×3 (01:32→14:54)
[2024-10-23] MEDS: ENOXAPARIN 120 MG/0.8 ML INJ SUBCUT ×2 (05:21→17:36)
[2024-10-23] MEDS: OMEPRAZOLE 20 MG CAPSULE DR PO (06:33)
[2024-10-23 07:00] LABS: Basophils Absolute Auto 0.05 K/uL (0.00-0.30); Basophils Percent Auto 0.6 % (0.0-3.0); Eosinophils Absolute Auto 0.07 K/uL (0.00-0.50); Eosinophils Percent Auto 0.9 % (0.0-7.0); Hematocrit 29.5 % (37.0-53.0); Immature Granulocytes Abs Auto 0.04 K/uL (0.00-0.30); Immature Granulocytes Pct Auto 0.5 %; Lymphocytes Percent Auto 50.7 % (20-44); Mean Corpuscular HGB Conc 34 gm/dL (32-36); Mean Corpuscular Hemoglobin 29 pg (26-34); Mean Corpuscular Volume 86 fL (80-100); Monocytes Percent Auto 6.5 % (0.0-11.0); Neutrophils Percent Auto 40.8 % (42.0-72.0); Platelet Count* 104 K/uL (140-440); Red Blood Count 3.43 m/uL (4.30-5.90); White Blood Count* 8.15 K/uL (4.50-11.00)
[2024-10-23 07:03] LABS: Albumin* 2.2 g/dL (3.3-5.0); Chloride* 101 mmol/L (96-114); Potassium* 3.5 mmol/L (3.6-5.1); Sodium* 128 mmol/L (135-149)
[2024-10-23 07:05] LABS: Anion Gap 7 mEq/L (7-15); Bilirubin Direct* 0.7 mg/dL (0.0-0.5); Carbon Dioxide* 20 mmol/L (20-32); Creatinine* 0.8 mg/dL (0.5-1.5); Estimated Glomerular Filt Rate 96 ml/min; INR 1.49 (0.91-1.10); Prothrombin Time 19.1 Seconds; Total Protein* 5.3 g/dL (6.0-8.3)
[2024-10-23 07:06] LABS: Alanine Aminotransferase* 41 U/L (4-50); Alkaline Phosphatase* 73 U/L (40-150); Aspartate Amino Transferase* 78 U/L (12-35); Blood Urea Nitrogen* 13 mg/dL (7-30); Calcium* 6.8 mg/dL (8.4-10.6); Glucose* 87 mg/dL (60-115)
[2024-10-23 07:47] LABS: Slide Review Acceptable Review (Acceptable); Slide Review Reflex Yes
--- NOTE | 2024-10-23 08:07 | PC.NURSE ---
[id number]: Pt alert and oriented x3. Afebrile. Pt denies pain, chest pain, SOB, and N/V. Pt's bp was 83/56 around 2340, pt denied lightheadedness and dizziness, updated MD Kat, orders given to give 1000L bolus, bp when bolus was finished was 110/72. Pt is up SBA with gait belt. Pt had no urine output by 0500, pt was bladder scanned for 648ml, pt tried but could not void. RN straight catheterized pt for 700 ml, pt tolerated well. Orthostatics done around 0530 pt's blood pressure drops and heart rate increases while standing and pt reports dizziness only when standing. MD Pimentel ordered 500 ml fluid bolus of normal saline.
--- NOTE | 2024-10-23 08:11 | P.IMPN_ITS ---
Progress Note: A&P Assessment and plan (1) Orthostatic hypotension: Problem details: - secondary to dehydration was presumed; persists despite fluids. consider adrenal insufficiency, PE obstructive/cardiogenic, etc - elevated lactate has resolved but orthostasis continues. Status: Acute (2) DVT (deep venous thrombosis): Problem details: -treatment dose enoxaparin b.i.d. -follow-up with CTA and echocardiogram given hypotension despite lack of hypoxia Status: Suspected (3) Dehydration: Problem details: -resolved. Good urine output. Lactate resolved. Hypotension persists. Status: Acute (4) Diarrhea: Problem details: - suspect secondary to recent viral syndrome, this has since resolved, he has not had any bowel movement for several days now Status: Resolved (5) Anemia: Problem details: - no active bleeding, normocytic, platelets are low and INR is slightly elevated. Recheck hemoglobin in the morning. Monitor for bleeding. Status: Acute (6) Thrombocytopenia: Problem details: - possibly secondary to prolonged viral illness, blood morphology was sent out from clinic today for pathology, monitor especially while on anticoagulation Status: Acute (7) Hyponatremia: Problem details: - suspect secondary to dehydration, hydrate and monitor Status: Acute (8) Hypokalemia: Problem details: Replace orally if tolerated, recheck in the morning Status: Acute (9) LFTs abnormal: Problem details: Total bilirubin chronically elevated, but usually in the 1.3-1.4 range. AST and INR are also mildly elevated. Unclear if this is new. May be related to recent hypotension and orthostasis, shocky liver. Patient also has known history of hepatitis-C. Hydrate and recheck LFTs in the morning. Status: Acute (10) Deafness: Status: Chronic (11) Obesity: Problem details: BMI 39.3 Status: Acute Subjective Date Seen: 10/23/24 Interval history: Daily Progress Note - Hospital Medicine #: 2 CC: Acute DVT, Compensated shock, hyponatremia, hypokalemia, fatty liver 24 HOUR UPDATE: Has received fluid boluses and maintenance fluids with evidence of persistent hypotension. This is compensated evidence by a normal lactate, mentation and tissue perfusion. Known DVT is being treated with 1 mg per kg of b.i.d. of enoxaparin. CTA was ordered for this morning but has been bumped secondary to acute ER patient's. I am also doing an echo given the persistent hypotension to look at his systolic function. CT abdomen pelvis done yesterday at [facility], 10/22/2024 1. Mild appearing colitis of the ascending colon. No obstruction. No findings specific to ischemia or inflammatory bowel disease. 2. Likely deep venous thrombus in the right common femoral and proximal superficial femoral veins. Likely superficial venous thrombus in the medial right groin. 3. Suspect fatty liver. Echo 08/11 Final Impressions: 1. LVEF estimate 60-65%. Normal LV size and wall thickness. 2. Normal RV size and global function. 3. No significant valvular abnormalities. 4. Normal PASP and RAP estimates. 5. Dilated aortic root [4.4 cm] and ascending aorta [4.5 cm]. Trileaflet aortic valve. Notable Labs, Micro, Rads, Interventions: Blood pressures evidence of orthostasis. At 0130 his blood pressure was 110/72. But his blood pressure has been 89/58, 94/54, 73/44 during orthostatics this morning. This puts his map at approximately 53-68. Even after 1 L infusion of normal saline after receiving IV fluids throughout the overnight, he persists with orthostasis. Pulse rate 86-107. Afebrile. 90% on room air. 118 kilos Hemoglobin 10. White blood cell count 8.15. Platelet count 104. Down from 151 INR 1.49 Hyponatremic at 128, hypokalemic at 3.5. Lactate has normalized. Renal function is normal. Bicarb was 20. Glucose is 87. Liver function abnormalities are stable and have somewhat improved. Objective: He looks tired but not toxic. Not septic appearing. Vitals: see above Lungs: Clear. No wheezes Cardiac: S1S2. Disposition/Potential discharge - Likely home in the next 24-48 hours Today I spent 50minutes seeing the patient, reviewing Expanse and EPIC notes/diagnostics, discussing the care plan with our care time that includes social work, PT/OT, pharmacy, RT, half-way and documenting my impressions and plan in the medical record. Exam Const: Vital Signs, click to edit/add: Vital Signs - 24 hr 10/22/24 16:00 10/22/24 16:38 10/22/24 19:00 Temperature 98 F Pulse Rate [Apical ] 93 89 Pulse Rate [Pulse Oximeter] Pulse Rate [orthos tatic lying] 93 Pulse Rate [orthos tatic sitting] 91 Pulse Rate [orthos tatic standing] 102 H Respiratory Rate 18 Blood Pressure [Le ft Arm] 97/67 Blood Pressure [Ri ght Arm] 110/73 Blood Pressure [or thostatic lying] 95/64 Blood Pressure [or thostatic sitting] 99/67 Blood Pressure [or thostatic standing ] 86/59 L Pulse Oximetry 96 Oxygen Delivery Me thod Room Air 10/22/24 23:42 10/22/24 23:42 10/23/24 01:30 Temperature 98.1 F 98.0 F Pulse Rate [Apical ] 88 Pulse Rate [Pulse Oximeter] 90 Pulse Rate [orthos tatic lying] Pulse Rate [orthos tatic sitting] Pulse Rate [orthos tatic standing] Respiratory Rate 16 16 16 Blood Pressure [Le ft Arm] 83/56 L 110/72 Blood Pressure [Ri ght Arm] Blood Pressure [or thostatic lying] Blood Pressure [or thostatic sitting] Blood Pressure [or thostatic standing ] Pulse Oximetry 90 90 90 Oxygen Delivery Me thod Room Air Room Air Room Air 10/23/24 05:27 Temperature Pulse Rate [Apical ] Pulse Rate [Pulse Oximeter] Pulse Rate [orthos tatic lying] 86 Pulse Rate [orthos tatic sitting] 96 Pulse Rate [orthos tatic standing] 107 H Respiratory Rate Blood Pressure [Le ft Arm] Blood Pressure [Ri ght Arm] Blood Pressure [or thostatic lying] 89/58 L Blood Pressure [or thostatic sitting] 94/54 L Blood Pressure [or thostatic standing ] 77/44 L Pulse Oximetry Oxygen Delivery Me thod Labs Labs: Laboratory Results - last 24 hr 10/22/24 10/22/24 10/22/24 16:26 18:33 19:29 WBC 9.25 RBC 3.86 L Hgb 11.3 L Hct 33.6 L MCV 87 MCH 29 MCHC 34 RDW Coeff of Eliseo 15.1 Plt Count 111 L Neut % (Auto) 47.3 Lymph % (Auto) 45.7 H [place] % (Auto) 5.8 Eos % (Auto) 0.4 Baso % (Auto) 0.4 Neut # (Auto) 4.36 Lymph # (Auto) 4.20 H [place] # (Auto) 0.50 Eos # (Auto) 0.04 Baso # (Auto) 0.04 Abs Immat Gran (auto) 0.04 Imm/Tot Granulo (auto) 0.4 Diff Slide Review Acceptable Review INR 1.37 H APTT 50 H Sodium 127 L Potassium 3.3 L Chloride 97 Carbon Dioxide 23 Anion Gap 7 BUN 14 Creatinine 0.9 Estimated Creat Clear Estimated GFR 93 Glucose 101 Lactate 2.0 H 1.3 Calcium 7.4 L Total Bilirubin 2.4 H Direct Bilirubin AST 98 H ALT 47 Alkaline Phosphatase 82 Troponin I 0.03 C-Reactive Protein 6.9 H Total Protein 5.8 L Albumin 2.6 L Procalcitonin 0.23 SARS-CoV-2 (PCR) Negative SARS-CoV-2 Influenza Type A (PCR) Negative PCR FLU A Influenza Type B (PCR) Negative PCR FLU B RSV (PCR) Negative PCR RSV 10/23/24 05:59 WBC 8.15 RBC 3.43 L Hgb 10.0 L Hct 29.5 L MCV 86 MCH 29 MCHC 34 RDW Coeff of [place]iseo 15.0 Plt Count 104 L Neut % (Auto) 40.8 L Lymph % (Auto) 50.7 H [place] % (Auto) 6.5 Eos % (Auto) 0.9 Baso % (Auto) 0.6 Neut # (Auto) 3.30 Lymph # (Auto) 4.10 H [place] # (Auto) 0.50 Eos # (Auto) 0.07 Baso # (Auto) 0.05 Abs Immat Gran (auto) 0.04 Imm/Tot Granulo (auto) 0.5 Diff Slide Review Acceptable Review INR 1.49 H APTT Sodium 128 L Potassium 3.5 L Chloride 101 Carbon Dioxide 20 Anion Gap 7 BUN 13 Creatinine 0.8 Estimated Creat Clear 70.70 Estimated GFR 96 Glucose 87 Lactate Calcium 6.8 L Total Bilirubin 2.0 H Direct Bilirubin 0.7 H AST 78 H ALT 41 Alkaline Phosphatase 73 Troponin I C-Reactive Protein Total Protein 5.3 L Albumin 2.2 L Procalcitonin SARS-CoV-2 (PCR) Influenza Type A (PCR) Influenza Type B (PCR) RSV (PCR)
--- NOTE | 2024-10-23 08:22 | CRLHL7_ITS ---
For Patients: As a result of the Century Cures Act, medical imaging exams and procedure reports are released immediately into your electronic medical record. You may view this report before your referring provider. If you have questions, please contact your health care provider. INDICATION: Tachycardia, dyspnea, DVT, hypotension. COMPARISON: None. TECHNIQUE: CT angiogram chest with contrast, pulmonary embolism protocol. Multiplanar axial, coronal, and sagittal reformats are included. MIP images to improve detection of pulmonary emboli are included. Intravenous contrast: 95 mL Isovue 370. FINDINGS: PE: Well-timed contrast bolus. There mixed occlusive and nonocclusive thrombi in both lungs, primarily in the lower lobes. The most proximal thrombus is at the segmental level. Upper limits of normal caliber main pulmonary artery. Upper limits of normal size right heart chambers. No reflux of contrast below the diaphragm. Airway: Normal tracheobronchial tree. Lungs: Wedge-shaped peripheral ground-glass opacity in the right lower lobe measures 2.2 centimeters and is probably an infarct. Mild basilar atelectasis. No consolidations. No edema or emphysema. Pleura: No pleural effusion. No pneumothorax. Lymph nodes: No thoracic adenopathy. Mediastinum: No pneumomediastinum. No mass. Heart and great vessels: No pericardial effusion. Mildly dilated cardiac chamber size. Scattered atherosclerotic plaques. The proximal aortic size is at the upper limits of normal, about 4.2 cm. Chest wall: Normal. No masses. Upper abdomen: Normal. Bones: No fractures. No focal bone lesions. IMPRESSION: Bilateral occlusive and nonocclusive pulmonary emboli in both lower lobes beginning at the segmental level. Overall thrombus burden is moderate. No CT findings of right heart failure. Small right basilar opacity may be a small infarct. Consider follow-up chest CT in 3 months. Please note that all CT scans at this facility use dose modulation, iterative reconstruction, and/or weight-based dosing when appropriate to reduce radiation dose to as low as reasonably achievable. Dictated by Lala Vasques MD @ 10/23/2024 12:23:55 PM (Electronically Signed)
[2024-10-23] MEDS: 0.9 % SODIUM CHLORIDE 500 ML 500 ML 1000 ML IV (08:30)
[2024-10-23 08:51] LABS: HCO3 VBG 24 mmol/L (21-28); Lactate* 1.2 mmol/L (0.5-1.9); PCO2 VBG 38 mmHG (40-50); PO2 VBG < 30.1 mmHG (25-47); pH VBG 7.409 (7.32-7.43)
[2024-10-23 09:11] LABS: C Reactive Protein* 6.7 mg/dL (0.5-1.0)
[2024-10-23 09:20] LABS: Troponin I* 0.03 ng/mL (0.01-0.04)
--- NOTE | 2024-10-23 10:26 | NUTR.NU ---
RDN with nutrition screen related to positive MST score. Patient admitted for DVT, hypotension, and dehydration. Per MD during IDT, patient was ill about 5 weeks ago with URI symptoms and diarrhea. Diarrhea has stopped and has not had a bowel movement for 4-5 days. Medical history significant for coronary artery disease, alcohol abuse, hearing loss, hepatitis-C, and hyperlipidemia. Current weight 260 lb 9oz; height 5ft 9in; BMI 38.5 kg/m2. RDN spoke to nursing staff whom reports patient is unsure of the amount of weight he has lost. He does not know what his usual body weight is. He did not eat anything about 1 day prior to arrival, however he is tolerating solid foods now and dinner 10/22/24 was 75%. No nutrition interventions at this time with unknown amount of weight loss and adequate intakes so far. RDN will continue to monitor and follow-up as needed.
[2024-10-23] MEDS: 0.9 % SODIUM CHLORIDE 500 ML 500 ML IV (10:47)
[2024-10-23] MEDS: ASPIRIN 81 MG TABLET EC PO (11:05)
[2024-10-23] MEDS: CLOPIDOGREL 75 MG TABLET PO (11:05)
[2024-10-23] MEDS: PERFLUTREN LIPID MICROSPHERES 2 ML VIAL IVP (11:31)
[2024-10-23 12:43] LABS: Magnesium* 1.6 mg/dL (1.5-2.6)
[2024-10-23] MEDS: SODIUM CHLORIDE 1 GM TABLET PO ×2 (13:47→17:36)
[2024-10-23] MEDS: HYDROCORTISONE SOD SUCCINATE 50 MG/ML inj 100 MG IVP (13:47)
[2024-10-23] MEDS: 0.9 % SODIUM CHLORIDE 1000 ml 1,000 ML 500 ML IV (13:48)
[2024-10-23] MEDS: 0.9 % SODIUM CHLORIDE 1000 ml 1,000 ML 150 ML IV (13:48)
--- NOTE | 2024-10-23 14:24 | REH.PT ---
PT order received. PT on hold per nursing due to medical status. Will check tomorrow.
--- NOTE | 2024-10-23 15:33 | PC.NURSE ---
PATIENT UNABLE TO VOID AGAIN. DENIES ISSUES VOIDING AT HOME. STATES LAST TIME HE WAS HOSPITALIZED HE HAD TO HAVE A CATHETER FOR URINARY RETENTION. BLADDER SCAN SHOWING >300ML AND ORDER OBTAINED FROM MD TO HAVE FORD PLACED. FORD PLACED WITHOUT DIFFICULTY AND 300ML OUT IN DARK HECTOR URINE.
[2024-10-23] MEDS: 0.9 % SODIUM CHLORIDE 250 ml 250 ML IV (17:03)
[2024-10-23] MEDS: ATORVASTATIN CALCIUM 10 MG TABLET PO (17:36)
[2024-10-23] MEDS: SODIUM CHLORIDE 0.9 % (FLUSH) 10 ML SYRINGE 5 ML IVF (21:48)
[2024-10-23] MEDS: HYDROCORTISONE SOD SUCCINATE 50 MG/ML inj IVP (21:48)
--- NOTE | 2024-10-23 23:09 | PC.NURSE ---
End of Shift: Patient pleasant and cooperative. Afebrile. Denies pain. BP 91/68 at first check, updated hospitalist and 250 mL bolus given. BP 98/70 and 94/70 upon recheck, MD updated and no new orders. Patient up to chair and for walk in hallway x2, denies any lightheadedness or dizziness. Johnson patent. Tolerating regular diet with no nausea.
[2024-10-24] VITALS (9 sets, daily range): BP systolic 82–107; BP diastolic 47–78; PULSE 64–85; RESP 16–20; TEMP 36.3–37.1; O2SAT 94–98
[2024-10-24] MEDS: 0.9 % SODIUM CHLORIDE 1000 ml 1,000 ML 150 ML IV ×3 (01:41→18:49)
[2024-10-24] MEDS: ENOXAPARIN 120 MG/0.8 ML INJ SUBCUT ×2 (04:44→18:48)
[2024-10-24] MEDS: OMEPRAZOLE 20 MG CAPSULE DR PO (06:07)
--- NOTE | 2024-10-24 06:23 | PC.NURSE ---
Pt Deaf but can communicate and understands well. BPs improved over night. Remains on fluids. Johnson in place and draining teresa color urine. Adrenal timed study this am.
[2024-10-24] MEDS: COSYNTROPIN 0.25 MG VIAL IVP (07:14)
[2024-10-24 07:27] LABS: HCO3 VBG 23 mmol/L (21-28); Ionized Calcium* 1.08 mmol/L (1.11-1.30); PCO2 VBG 37 mmHG (40-50); PO2 VBG 37.2 mmHG (25-47); pH VBG 7.403 (7.32-7.43)
[2024-10-24 07:28] LABS: Basophils Absolute Auto 0.01 K/uL (0.00-0.30); Basophils Percent Auto 0.2 % (0.0-3.0); Hematocrit 28.4 % (37.0-53.0); Hemoglobin* 9.5 gm/dL (13.5-17.5); Immature Granulocytes Abs Auto 0.04 K/uL (0.00-0.30); Immature Granulocytes Pct Auto 0.6 %; Lymphocytes Absolute Auto 2.66 K/uL (0.90-2.90); Lymphocytes Percent Auto 42.7 % (20-44); Mean Corpuscular HGB Conc 34 gm/dL (32-36); Mean Corpuscular Hemoglobin 29 pg (26-34); Mean Corpuscular Volume 88 fL (80-100); Monocytes Percent Auto 7.4 % (0.0-11.0); Neutrophils Absolute Auto 3.06 K/uL (1.7-7.0); Neutrophils Percent Auto 49.1 % (42.0-72.0); Platelet Count* 97 K/uL (140-440); RDW Coefficient of Variation % 15.4 % (11.5-15.5); Red Blood Count 3.24 m/uL (4.30-5.90); White Blood Count* 6.23 K/uL (4.50-11.00)
[2024-10-24 07:42] LABS: Slide Review Reflex No
[2024-10-24 07:48] LABS: Albumin* 2.2 g/dL (3.3-5.0); Chloride* 107 mmol/L (96-114); Sodium* 132 mmol/L (135-149)
[2024-10-24 07:49] LABS: Potassium* 3.7 mmol/L (3.6-5.1)
[2024-10-24 07:50] LABS: Creatinine* 0.5 mg/dL (0.5-1.5); Estimated Glomerular Filt Rate 111 ml/min
[2024-10-24 07:51] LABS: Alanine Aminotransferase* 40 U/L (4-50); Alkaline Phosphatase* 67 U/L (40-150); Anion Gap 4 mEq/L (7-15); Aspartate Amino Transferase* 65 U/L (12-35); Bilirubin Direct* 0.6 mg/dL (0.0-0.5); Bilirubin Total* 1.6 mg/dL (0.1-1.5); Blood Urea Nitrogen* 8 mg/dL (7-30); Carbon Dioxide* 21 mmol/L (20-32); Total Protein* 5.1 g/dL (6.0-8.3)
[2024-10-24 07:52] LABS: Calcium* 7.2 mg/dL (8.4-10.6); Glucose* 134 mg/dL (60-115)
[2024-10-24 07:54] LABS: C Reactive Protein* 6.1 mg/dL (0.5-1.0)
[2024-10-24 07:56] LABS: INR 1.23 (0.91-1.10); Prothrombin Time 16.3 Seconds
[2024-10-24 08:03] LABS: Troponin I* 0.02 ng/mL (0.01-0.04)
[2024-10-24 08:11] LABS: NT Pro B Type NatriureticPept* 2450 pg/mL
[2024-10-24] MEDS: SODIUM CHLORIDE 1 GM TABLET PO ×3 (08:41→18:48)
[2024-10-24] MEDS: ASPIRIN 81 MG TABLET EC PO (08:42)
[2024-10-24] MEDS: CLOPIDOGREL 75 MG TABLET PO (08:42)
--- NOTE | 2024-10-24 11:38 | PM.IMPN1 ---
Progress Note: A&P Assessment and plan (1) Orthostatic hypotension: Problem details: - secondary to dehydration was presumed on admission, minimal improvement with IVFs - ddx includes adrenal insufficiency, PE obstructive/cardiogenic, anemia/GI bleeding. Reassuring TTE, no hypoxia, no tachycardia - elevated lactate has resolved but orthostatic hypotension persists, patient asymptomatic Status: Acute (2) DVT (deep venous thrombosis): Problem details: -also PE, on treatment dose enoxaparin BID Status: Suspected (3) Pulmonary emboli: Problem details: - no hypoxia, no tachycardia - CTA 10/23/24: IMPRESSION: Bilateral occlusive and nonocclusive pulmonary emboli in both lower lobes beginning at the segmental level. Overall thrombus burden is moderate. No CT findings of right heart failure. Small right basilar opacity may be a small infarct. Consider follow-up chest CT in 3 months. - TTE 10/23/24: Final Impressions: 1. Normal LV size, normal wall thickness, normal global systolic function with an estimated EF of 55 - 60%. 2. Right ventricular cavity size is mildly enlarged, global systolic RV function is normal. 3. The aortic valve is probably trileaflet, mild stenosis and no regurgitation. The aortic valve peak velocity is 2.3 m/s, the peak gradient is 20 mmHg, and the mean gradient is 13 mmHg. The aortic valve area is 1.96 cm?? with a dimensionless index of 0.40. The stroke volume index is 37.5 ml/m??. 4. 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 5. Echo contrast was administered to enhance visualization of all left ventricular segments. Status: Acute (4) Dehydration: Problem details: -resolved. Good urine output. Lactate resolved. Hypotension persists. Status: Acute (5) Anemia: Problem details: - no active bleeding, normocytic, platelets are low and INR is slightly elevated - FOBT ordered - will hold ASA/Plavix while on Lovenox (on these for coronary artery calcifications and h/o CVA) Status: Acute (6) Thrombocytopenia: Problem details: - possibly secondary to prolonged viral illness, blood morphology was sent out from clinic today for pathology, monitor especially while on anticoagulation Status: Acute (7) Diarrhea: Problem details: - suspect secondary to recent viral syndrome, this has resolved since admission Status: Resolved (8) Hyponatremia: Problem details: - suspect secondary to dehydration, hydrate and monitor Status: Acute (9) Hypokalemia: Problem details: -Replace orally if tolerated, recheck in the morning Status: Acute (10) LFTs abnormal: Problem details: -Total bilirubin chronically elevated, but usually in the 1.3-1.4 range, AST and INR are also mildly elevated, LFTs wnl per oupatient chart -ddx: shock liver/hypotension, related to colitis, new diagnosis of cirrhosis. Ultrasound ordered to evaluate, follow LFTs -known history of hepatitis-C (negative viral load 2021) Status: Acute (11) Deafness: Problem details: - ASL and lip reading Status: Chronic (12) Obesity: Problem details: BMI 39.3 Status: Acute Subjective Date Seen: 10/24/24 Interval history: Van was admitted to the hospital on 10/22 for persistent hypotension in the setting of recent diarrheal illness and newly diagnosed PEs/DVTs. Notable findings during stay: - persistent hypotension (on IVFs, asymptomatic. Able to participate in therapies today without any dizziness or lightheadedness) - elevated LFTs, fatty liver on clinic CT prior to admission - resolution of diarrhea - reassuring TTE Hgb trending downward (12.2 -->9.5), normal BUN. INR 1.23, Na 132, bilirubin 1.6, AST 65. Feeling better today, tolerating medications. No abdominal pain, no further diarrhea. Exam Narrative: Exam Narrative: GEN: Alert and oriented, sitting comfortably in bedside chair HEENT: EOMIs bilaterally, no scleral icterus CV: RRR, No concerning murmurs R: LCTA bilaterally without concerning wheezing Ab: Soft and nontender, no obvious HSM Ext: Wearing bilateral jhonny hose Skin: No concerning skin lesions or rashes on exposed skin Neuro: Nonfocal Psych: Appropriate Const: Vital Signs, click to edit/add: Vital Signs - 24 hr 10/23/24 14:00 10/23/24 14:00 10/23/24 15:00 Temperature Pulse Rate 90 Pulse Rate [Apical ] 89 Pulse Rate [Pulse Oximeter] Respiratory Rate Blood Pressure [Le ft Arm] 98/59 L Blood Pressure [Ri ght Arm] Pulse Oximetry 93 Oxygen Delivery Me thod Room Air 10/23/24 15:00 10/23/24 15:00 10/23/24 15:00 Temperature 97.8 F Pulse Rate 77 Pulse Rate [Apical ] 83 Pulse Rate [Pulse Oximeter] 83 Respiratory Rate 16 16 Blood Pressure [Le ft Arm] 91/68 Blood Pressure [Ri ght Arm] Pulse Oximetry 93 Oxygen Delivery [place] thod Room Air 10/23/24 19:00 10/23/24 21:30 10/23/24 23:31 Temperature 97.4 F L 97.9 F Pulse Rate Pulse Rate [Apical ] Pulse Rate [Pulse Oximeter] 73 74 Respiratory Rate 16 16 Blood Pressure [Le ft Arm] 98/70 94/70 98/75 Blood Pressure [Ri ght Arm] Pulse Oximetry 93 [facility] 10/23/24 23:38 10/23/24 23:39 10/23/24 23:40 Temperature Pulse Rate 68 Pulse Rate [Apical ] 83 Pulse Rate [Pulse Oximeter] 74 Respiratory Rate 16 16 Blood Pressure [Le ft Arm] Blood Pressure [Ri ght Arm] Pulse Oximetry [facility] 10/24/24 02:23 10/24/24 07:21 10/24/24 07:30 Temperature 98.7 F Pulse Rate 69 Pulse Rate [Apical ] Pulse Rate [Pulse Oximeter] 70 Respiratory Rate 16 16 Blood Pressure [Le ft Arm] 102/74 Blood Pressure [Ri ght Arm] Pulse Oximetry 94 [facility] 10/24/24 07:30 10/24/24 07:30 10/24/24 07:30 Temperature 98.5 F 98.5 F Pulse Rate Pulse Rate [Apical ] Pulse Rate [Pulse Oximeter] 66 66 Respiratory Rate 16 16 16 Blood Pressure [Le ft Arm] 82/47 L 82/47 L Blood Pressure [Ri ght Arm] 104/78 104/78 Pulse Oximetry 95 95 [facility] Room Air Room Air 10/24/24 07:30 10/24/24 08:43 10/24/24 10:14 Temperature 98.5 F Pulse Rate Pulse Rate [Apical ] Pulse Rate [Pulse Oximeter] 66 66 85 Respiratory Rate 16 16 Blood Pressure [Le ft Arm] 82/69 L 83/70 L Blood Pressure [Ri ght Arm] 92/61 Pulse Oximetry 95 [facility] 10/24/24 11:29 Temperature 98.2 F Pulse Rate Pulse Rate [Apical ] Pulse Rate [Pulse Oximeter] 78 Respiratory Rate 16 Blood Pressure [Le ft Arm] 101/57 L Blood Pressure [Ri ght Arm] Pulse Oximetry 94 Oxygen Delivery Me thod Room Air Labs Labs: Laboratory Results - last 24 hr 10/23/24 10/23/24 10/24/24 05:59 12:12 07:15 WBC 6.23 RBC 3.24 L Hgb 9.5 L Hct 28.4 L MCV 88 MCH 29 MCHC 34 RDW Coeff of Eliseo 15.4 Plt Count 97 L Neut % (Auto) 49.1 Lymph % (Auto) 42.7 [place] % (Auto) 7.4 Eos % (Auto) 0.0 Baso % (Auto) 0.2 Neut # (Auto) 3.06 Lymph # (Auto) 2.66 [place] # (Auto) 0.50 Eos # (Auto) 0.00 Baso # (Auto) 0.01 Abs Immat Gran (auto) 0.04 Imm/Tot Granulo (auto) 0.6 INR 1.23 H VBG pH 7.403 VBG pCO2 37 L VBG pO2 37.2 VBG HCO3 23 Sodium 132 L Potassium 3.7 Chloride 107 Carbon Dioxide 21 Anion Gap 4 L BUN 8 Creatinine 0.5 Estimated Creat Clear 70.70 Estimated GFR 111 Glucose 134 H Calcium 7.2 L Ionized Calcium [place] 1.08 L Magnesium 1.6 Total Bilirubin 1.6 H Direct Bilirubin 0.6 H AST 65 H ALT 40 Alkaline Phosphatase 67 Troponin I 0.02 C-Reactive Protein 6.1 H NT-Pro-B Natriuret Pep 2450 Total Protein 5.1 L Albumin 2.2 L TSH 2.680 Cortisol Cancelled Lab Acknowledgement Test Added 10/24/24 07:40 WBC RBC Hgb Hct MCV MCH MCHC RDW Coeff of Eliseo Plt Count Neut % (Auto) Lymph % (Auto) [place] % (Auto) Eos % (Auto) Baso % (Auto) Neut # (Auto) Lymph # (Auto) [place] # (Auto) Eos # (Auto) Baso # (Auto) Abs Immat Gran (auto) Imm/Tot Granulo (auto) INR VBG pH VBG pCO2 VBG pO2 VBG HCO3 Sodium Potassium Chloride Carbon Dioxide Anion Gap BUN Creatinine Estimated Creat Clear Estimated GFR Glucose Calcium Ionized Calcium [place] Magnesium Total Bilirubin Direct Bilirubin AST ALT Alkaline Phosphatase Troponin I C-Reactive Protein NT-Pro-B Natriuret Pep Total Protein Albumin TSH Cortisol Lab Acknowledgement Test Added
[2024-10-24] MEDS: HYDROCORTISONE SOD SUCCINATE 50 MG/ML inj IVP ×2 (15:15→22:17)
--- NOTE | 2024-10-24 16:11 | PC.NURSE ---
End of Shift: Pt IS VERY pleasant and cooperative.he is deaf but can read lips and can communicate with nursing staff. Afebrile. Denies pain. BP are low this am, updated and no new orders. Patient up to chair and for walk in hallway x4, denies any lightheadedness or dizziness. PT and OT worked with him. Elizabeth patent. Tolerating regular diet with no nausea. he is NPO and will have a U/S @ 1800. IV is patent
[2024-10-24 17:09] LABS: Cortisol, Serum 15.8 ug/dL
[2024-10-24] MEDS: ATORVASTATIN CALCIUM 10 MG TABLET PO (18:48)
[2024-10-24] MEDS: 0.9 % SODIUM CHLORIDE 250 ml 250 ML IV (23:29)
--- NOTE | 2024-10-24 23:43 | PC.NURSE ---
Patient urine output 125 mL this shift of tea colored urine. Provider updated on decreased output. Order received for Saline bolus. Pt bladder scanned for 0, showing empty bladder. Oncoming nurse to obtain a urine sample.
[2024-10-25] VITALS (8 sets, daily range): BP systolic 98–117; BP diastolic 63–86; PULSE 62–90; RESP 15–20; TEMP 36.3–36.4; O2SAT 92–97
[2024-10-25 01:25] LABS: Appearance Urine Slightly Cloudy (Clear); Bilirubin Urine 1+ (Negative); Blood Urine 2+ (Negative); Color Urine Yellow (Yellow); Glucose Urine Negative (Negative); Ketones Urine Negative (Negative); Leukocyte Esterase Urine Negative (Negative); Nitrite Urine Negative (Negative); Protein Urine 1+ (Negative); Specific Gravity Urine 1.015 (1.000-1.030); Urobilinogen Urine >=8.0 (0.2-1.0)
[2024-10-25 01:34] LABS: Amorphous Sediment Urine Few; Bacteria Urine Few; Squamous Epithelial Cell Urine Few (None-Few)
[2024-10-25] MEDS: 0.9 % SODIUM CHLORIDE 1000 ml 1,000 ML 150 ML IV (02:14)
[2024-10-25] MEDS: ENOXAPARIN 120 MG/0.8 ML INJ SUBCUT ×2 (06:00→17:14)
[2024-10-25] MEDS: HYDROCORTISONE SOD SUCCINATE 50 MG/ML inj IVP ×2 (06:00→14:39)
[2024-10-25] MEDS: OMEPRAZOLE 20 MG CAPSULE DR PO (06:00)
[2024-10-25 06:28] LABS: Basophils Absolute Auto 0.01 K/uL (0.00-0.30); Basophils Percent Auto 0.2 % (0.0-3.0); Hematocrit 27.8 % (37.0-53.0); Hemoglobin* 9.3 gm/dL (13.5-17.5); Immature Granulocytes Abs Auto 0.08 K/uL (0.00-0.30); Immature Granulocytes Pct Auto 1.2 %; Lymphocytes Absolute Auto 2.21 K/uL (0.90-2.90); Lymphocytes Percent Auto 34.3 % (20-44); Mean Corpuscular HGB Conc 34 gm/dL (32-36); Mean Corpuscular Hemoglobin 29 pg (26-34); Mean Corpuscular Volume 88 fL (80-100); Monocytes Percent Auto 7.1 % (0.0-11.0); Neutrophils Absolute Auto 3.68 K/uL (1.7-7.0); Neutrophils Percent Auto 57.2 % (42.0-72.0); Platelet Count* 119 K/uL (140-440); RDW Coefficient of Variation % 15.4 % (11.5-15.5); Red Blood Count 3.17 m/uL (4.30-5.90); White Blood Count* 6.44 K/uL (4.50-11.00)
[2024-10-25 06:41] LABS: INR 1.14 (0.91-1.10); Prothrombin Time 15.3 Seconds
--- NOTE | 2024-10-25 06:45 | PC.NURSE ---
23-07: pleasant and cooperative. SBA with walker. Johnson patent and draining tea colored urine. 250mL bolus given over 1 hour for minimal urine output, urine output improved ? 450mL out this shift. Pts weight is up 10lbs from previous day, pt stated ?that cant be right. It should be about 260lbs?. Pts weight 2/5 AM was 260.9lbs. Pt reports feeling ?full, full of fluid. LS clear/dim.
[2024-10-25 06:52] LABS: Chloride* 108 mmol/L (96-114); Slide Review Acceptable Review (Acceptable); Slide Review Reflex Yes
[2024-10-25 06:53] LABS: Potassium* 3.6 mmol/L (3.6-5.1); Sodium* 133 mmol/L (135-149)
[2024-10-25 06:55] LABS: Anion Gap 3 mEq/L (7-15); Aspartate Amino Transferase* 61 U/L (12-35); Bilirubin Direct* 0.4 mg/dL (0.0-0.5); Bilirubin Total* 1.1 mg/dL (0.1-1.5); Carbon Dioxide* 22 mmol/L (20-32); Creatinine* 0.5 mg/dL (0.5-1.5); Estimated Glomerular Filt Rate 111 ml/min; Total Protein* 4.8 g/dL (6.0-8.3)
[2024-10-25 06:56] LABS: Alanine Aminotransferase* 39 U/L (4-50); Alkaline Phosphatase* 64 U/L (40-150); Blood Urea Nitrogen* 7 mg/dL (7-30); Calcium* 7.2 mg/dL (8.4-10.6); Glucose* 121 mg/dL (60-115)
[2024-10-25 07:31] LABS: Ferritin* > 1000.0 ng/mL (17.9-464.0)
[2024-10-25] MEDS: SODIUM CHLORIDE 1 GM TABLET PO ×3 (09:17→17:14)
--- NOTE | 2024-10-25 10:46 | P.IMPN_ITS ---
Progress Note: A&P Assessment and plan (1) Orthostatic hypotension: Problem details: - secondary to dehydration was presumed on admission, minimal improvement with IVFs - ddx includes adrenal insufficiency, labs still pending, PE obstructive/cardiogenic, anemia/GI bleeding. Reassuring TTE, no hypoxia, no tachycardia - elevated lactate has resolved but orthostatic hypotension persists, patient remains asymptomatic Status: Acute (2) DVT (deep venous thrombosis): Problem details: -also PE, on treatment dose enoxaparin BID -plan to transition to apixaban with improved platelets. Discussed risks /benefits of anticoagulation with lang interpreter at bedside Status: Suspected (3) Pulmonary emboli: Problem details: - no hypoxia, no tachycardia - CTA 10/23/24: IMPRESSION: Bilateral occlusive and nonocclusive pulmonary emboli in both lower lobes beginning at the segmental level. Overall thrombus burden is moderate. No CT findings of right heart failure. Small right basilar opacity may be a small infarct. Consider follow-up chest CT in 3 months. - TTE 10/23/24: Final Impressions: 1. Normal LV size, normal wall thickness, normal global systolic function with an estimated EF of 55 - 60%. 2. Right ventricular cavity size is mildly enlarged, global systolic RV function is normal. 3. The aortic valve is probably trileaflet, mild stenosis and no regurgitation. The aortic valve peak velocity is 2.3 m/s, the peak gradient is 20 mmHg, and the mean gradient is 13 mmHg. The aortic valve area is 1.96 cm?? with a dimensionless index of 0.40. The stroke volume index is 37.5 ml/m??. 4. 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 5. Echo contrast was administered to enhance visualization of all left ventricular segments. Status: Acute (4) Dehydration: Problem details: -resolved following IVF with boluses. Lactate resolved. Hypotension persists. -urine output inconsistent, color improving -ultrasound for liver shows right kidney normal in size, no hydronephrosis masses or stones -UA collected, UC pending -fluid overload following IVF, Lasix 40 mg IV x1, monitoring Status: Acute (5) Anemia: Problem details: - no active bleeding, normocytic, platelets are low and INR is slightly elevated. Dilutional component as well - FOBT ordered - no stools yet, senna started - will hold ASA/Plavix while on Lovenox (on these for coronary artery calcifications and h/o CVA) Status: Acute (6) Thrombocytopenia: Problem details: - possibly secondary to prolonged viral illness, blood morphology was sent out from clinic today for pathology, monitor especially while on anticoagulation Status: Acute (7) Diarrhea: Problem details: - suspect secondary to recent viral syndrome, this has resolved since admission - starting senna b.i.d. as no BM since admission, monitor for loose stools Status: Resolved (8) Hyponatremia: Problem details: - suspect secondary to dehydration, hydrate and monitor Status: Acute (9) Hypokalemia: Problem details: -Replace orally if tolerated, stable Status: Acute (10) LFTs abnormal: Problem details: -Total bilirubin chronically elevated, but usually in the 1.3-1.4 range, AST and INR are also mildly elevated, LFTs wnl per oupatient chart -ddx: shock liver/hypotension, related to colitis, new diagnosis of cirrhosis -Ultrasound shows unremarkable liver with normal contour, no convincing evidence for cirrhosis, follow LFTs -known history of hepatitis-C (negative viral load 2021) Status: Acute (11) Deafness: Problem details: - ASL and lip reading Status: Chronic (12) Obesity: Problem details: BMI 39.3 Status: Acute (13) Elevated ferritin: Problem details: -ferritin > 1000 -iron supplement stopped -liver US unremarkable, LFTs improving, Hgb downtrending, TSH WNL -add TIBC, Fe, A1c, ESR, CRP, peripheral smear -outpatient f/u with hematology Status: Acute Time Spent With Patient Total time spent: Today I spent 60 minutes seeing the patient, discussing the patient with ER staff, reviewing Expanse and Epic notes/diagnostics, discussing the care plan with our team that includes social work, PT/OT, pharmacy, RT, alf and documenting my impressions and plan in the medical record. Subjective Date Seen: 10/25/24 Interval history: Patient is seen this morning sitting up in a chair, mother at bedside, lang interpreter in the room. Reports feeling better. SBP 114 this morning. Denies headache or dizziness. Tolerating orals without nausea. Improved urine output this morning after decrease yesterday. Has not had a bowel movement in approximately 4 days following episode of diarrhea. Denies abdominal pain. Reports feeling edematous this morning following ongoing IVF. Overall, weight is up 7 kg. HPI: Van was admitted to the hospital on 10/22 for persistent hypotension in the setting of recent diarrheal illness and newly diagnosed PEs/DVTs. Notable findings during stay: - persistent hypotension (on IVFs, asymptomatic. Able to participate in therap ies today without any dizziness or lightheadedness) - elevated LFTs, fatty liver on clinic CT prior to admission, U/S shows unremarkable liver, no evidence cirrhosis - resolution of diarrhea - reassuring TTE - send out cortisol, stim tests pending Hgb trending downward (12.2 -->9.3), normal BUN. INR 1.14, Na 133, bilirubin 1.1, AST 61. Exam Narrative: Exam Narrative: PHYSICAL EXAM General: Pleasant, conversant, NAD HEENT: Normocephalic, atraumatic, sclera white, EOMI, oral mucosa moist Cardiovascular: RRR, S1S2. +1 pitting edema lower extremities, mild edematous hands Pulmonary: CTA bilaterally without rhonchi, rales, expiratory wheezes. No dyspnea on room air Abdominal: Soft, mildly distended, NTTP Neurological: Alert, answering questions appropriately, cranial nerves intact, no focal findings Extremities: No gross joint deformity or swelling. AROMI. Neurovascularly intact Skin: Warm, dry. Const: Vital Signs, click to edit/add: Vital Signs - 24 hr 10/24/24 11:29 10/24/24 15:00 10/24/24 15:00 Temperature 98.2 F Pulse Rate 69 Pulse Rate [Pulse Oximeter] 78 73 Respiratory Rate 16 16 Blood Pressure [Le ft Arm] 101/57 L Blood Pressure [Ri ght Arm] Pulse Oximetry 94 Oxygen Delivery Me thod Room Air 10/24/24 15:00 10/24/24 15:00 10/24/24 19:00 Temperature 97.8 F 98 F Pulse Rate Pulse Rate [Pulse Oximeter] 74 73 Respiratory Rate 16 16 Blood Pressure [Le ft Arm] 104/58 L 107/78 Blood Pressure [Ri ght Arm] Pulse Oximetry 98 96 97 Oxygen Delivery Me thod Room Air Room Air Room Air 10/24/24 23:00 10/24/24 23:00 10/24/24 23:00 Temperature 97.4 F L Pulse Rate 69 Pulse Rate [Pulse Oximeter] 64 Respiratory Rate 20 20 Blood Pressure [Le ft Arm] Blood Pressure [Ri ght Arm] 93/65 Pulse Oximetry 95 95 Oxygen Delivery Me thod Room Air Room Air 10/24/24 23:00 10/25/24 02:25 10/25/24 07:45 Temperature 97.5 F L Pulse Rate 65 Pulse Rate [Pulse Oximeter] 65 Respiratory Rate 20 20 Blood Pressure [Le ft Arm] Blood Pressure [Ri ght Arm] 98/63 Pulse Oximetry 95 Oxygen Delivery Me thod Room Air 10/25/24 07:45 10/25/24 07:45 10/25/24 07:45 Temperature Pulse Rate Pulse Rate [Pulse Oximeter] 65 65 Respiratory Rate 18 18 18 Blood Pressure [Le ft Arm] 114/68 Blood Pressure [Ri ght Arm] Pulse Oximetry 96 96 Oxygen Delivery Me thod Room Air Room Air Labs Labs: Laboratory Results - last 24 hr 10/23/24 10/25/24 10/25/24 05:59 01:16 05:54 WBC 6.44 RBC 3.17 L Hgb 9.3 L Hct 27.8 L MCV 88 MCH 29 MCHC 34 RDW Coeff of Eliseo 15.4 Plt Count 119 L Neut % (Auto) 57.2 Lymph % (Auto) 34.3 [place] % (Auto) 7.1 Eos % (Auto) 0.0 Baso % (Auto) 0.2 Neut # (Auto) 3.68 Lymph # (Auto) 2.21 [place] # (Auto) 0.50 Eos # (Auto) 0.00 Baso # (Auto) 0.01 Abs Immat Gran (auto) 0.08 Imm/Tot Granulo (auto) 1.2 Diff Slide Review Acceptable Review INR 1.14 H Sodium 133 L Potassium 3.6 Chloride 108 Carbon Dioxide 22 Anion Gap 3 L BUN 7 Creatinine 0.5 Estimated Creat Clear 70.70 Estimated GFR 111 Glucose 121 H Calcium 7.2 L Ionized Calcium [place] 1.10 L Ferritin > 1000.0 H Total Bilirubin 1.1 Direct Bilirubin 0.4 AST 61 H ALT 39 Alkaline Phosphatase 64 Total Protein 4.8 L Albumin 2.0 L Cortisol 15.8 Urine Color Yellow Urine Appearance Slightly Cloudy A Urine pH 6.0 Ur Specific [place] 1.015 Urine Protein 1+ A Urine Glucose (UA) Negative Urine Ketones Negative Urine Blood 2+ A Urine Nitrite Negative Urine Bilirubin 1+ A Urine Urobilinogen >=8.0 A Ur Leukocyte Esterase Negative Urine RBC 5-10 A Urine WBC 2-5 Ur Squamous Epith Cells Few Amorphous Sediment Few A Urine Bacteria Few A
[2024-10-25] MEDS: SENNOSIDES/DOCUSATE TABLET 1 TAB PO ×2 (11:39→20:45)
[2024-10-25] MEDS: FUROSEMIDE 10 MG/ML inj 40 MG IVP (11:39)
[2024-10-25 11:46] LABS: Hemoglobin A1C* 5.1 % (0-5.6); Iron* 100 ug/dL (49-181)
[2024-10-25 11:50] LABS: C Reactive Protein* 4.2 mg/dL (0.5-1.0)
[2024-10-25 11:55] LABS: Percent Iron Saturation 63 % (20-50); Total Iron Binding Capacity 158 ug/dL (261-462)
[2024-10-25 12:18] LABS: Erythrocyte SedimentationRate* 4 mm/hr (2-15)
[2024-10-25] MEDS: 0.9 % SODIUM CHLORIDE 1000 ml 1,000 ML 75 ML IV (13:13)
--- NOTE | 2024-10-25 14:48 | PC.SOCIAL ---
Director of Improvement Director services: Met with pt using in-person insert molding operator to ask about his experience with communication during this stay and to discuss preference for using veneer stock grader services. Pt shared that the IPad has been working fine for communication with nurses and therapists, but he does prefer to have an in-person veneer stock grader for physician discussions once a day if possible. He shared that he spoke with the physician using the in-person veneer stock grader today and was pleased with this conversation. Suggested that hospital will request an in-person veneer stock grader from an agency for two hours a day every morning on days pt is hospitalized and reminded pt he can always request an in-person veneer stock grader at any time. Pt is pleased with this plan and would like to prioritize the physician with the veneer stock grader visit time as he feels the IPad has worked well for all other staff communication. Provided pt with my contact information and encouraged him to ask for me or share any concerns or suggestions with the staff as needed. Pt thanked this worker for the visit.
[2024-10-25] MEDS: ATORVASTATIN CALCIUM 10 MG TABLET PO (17:14)
--- NOTE | 2024-10-25 19:29 | PC.NURSE ---
Nursing Care Hours: [id number] Pt this shift calm and cooperative, alert and oriented. Pain reported to mid anterior chest 5/10 with activity and deep breathing. Declined any interventions. Upon start of shift, race and sports book writer observed pt to be edematous in upper and lower extremities, non pitting. Pt reported stiffness in hands. IV fluids rate cut in half and lasix given. Pt u/o about 1900 within first two hours of lasix. total u/o for the shift about 2900 ml. Pt states improved mobility in hands, and race and sports book writer noticed decreased swelling in upper extremities. VSS, BP soft but stable. Orthostatics BP entered to expanse. Senna given but no BM this shift. Pt admits passing gas.
[2024-10-25 20:08] LABS: Cortisol 0 Min 36.8 ug/dL
[2024-10-26] MEDS: 0.9 % SODIUM CHLORIDE 1000 ml 1,000 ML 75 ML IV (03:58)
[2024-10-26 04:39] VITALS: BP 121/86; PULSE 72; RESP 18; O2SAT 92
[2024-10-26] MEDS: ENOXAPARIN 120 MG/0.8 ML INJ SUBCUT (06:04)
[2024-10-26 07:00] VITALS: PULSE 116
[2024-10-26 07:02] LABS: Basophils Absolute Auto 0.02 K/uL (0.00-0.30); Basophils Percent Auto 0.4 % (0.0-3.0); Eosinophils Absolute Auto 0.04 K/uL (0.00-0.50); Eosinophils Percent Auto 0.7 % (0.0-7.0); Hematocrit 29.5 % (37.0-53.0); Hemoglobin* 9.8 gm/dL (13.5-17.5); Immature Granulocytes Abs Auto 0.05 K/uL (0.00-0.30); Immature Granulocytes Pct Auto 0.9 %; Lymphocytes Absolute Auto 2.45 K/uL (0.90-2.90); Lymphocytes Percent Auto 43.4 % (20-44); Mean Corpuscular HGB Conc 33 gm/dL (32-36); Mean Corpuscular Hemoglobin 29 pg (26-34); Mean Corpuscular Volume 88 fL (80-100); Monocytes Percent Auto 7.6 % (0.0-11.0); Neutrophils Absolute Auto 2.65 K/uL (1.7-7.0); Platelet Count* 124 K/uL (140-440); RDW Coefficient of Variation % 15.6 % (11.5-15.5); Red Blood Count 3.34 m/uL (4.30-5.90); White Blood Count* 5.64 K/uL (4.50-11.00)
--- NOTE | 2024-10-26 07:15 | PC.NURSE ---
End of shift [id number] ? Pt alert, oriented, cooperative. Pt up with standby assistance and walker/gait belt. Observed to walk the halls with staff. Tolerating RA and regular diet/fluids. Pt denies pain, SOB. Reports feeling ?tired? with exertion. Observed to sleep during shift. Appears to be resting in bed with call light within reach at end of shift.
[2024-10-26 07:21] LABS: INR 1.04 (0.91-1.10); Prothrombin Time 14.2 Seconds; Slide Review Reflex No
[2024-10-26 07:24] LABS: Albumin* 2.2 g/dL (3.3-5.0); Chloride* 102 mmol/L (96-114); Sodium* 134 mmol/L (135-149)
[2024-10-26 07:27] LABS: Alanine Aminotransferase* 54 U/L (4-50); Alkaline Phosphatase* 70 U/L (40-150); Anion Gap 4 mEq/L (7-15); Aspartate Amino Transferase* 92 U/L (12-35); Bilirubin Direct* 0.3 mg/dL (0.0-0.5); Bilirubin Total* 1.2 mg/dL (0.1-1.5); Blood Urea Nitrogen* 7 mg/dL (7-30); Calcium* 7.2 mg/dL (8.4-10.6); Carbon Dioxide* 28 mmol/L (20-32); Creatinine* 0.6 mg/dL (0.5-1.5); Estimated Glomerular Filt Rate 105 ml/min; Glucose* 75 mg/dL (60-115); Total Protein* 5.1 g/dL (6.0-8.3)
[2024-10-26 07:34] LABS: Potassium* 2.9 mmol/L (3.6-5.1)
[2024-10-26 07:51] LABS: Magnesium* 1.6 mg/dL (1.5-2.6)
[2024-10-26 08:30] VITALS: BP 127/76; BP 134/107; BP 92/51; PULSE 107; PULSE 110; PULSE 115; RESP 22; O2SAT 93
[2024-10-26] MEDS: SENNOSIDES/DOCUSATE TABLET 1 TAB PO ×2 (09:05→20:30)
[2024-10-26] MEDS: POTASSIUM BICARB 25 MEQ EFFERVESCENT TAB PO ×2 (09:05→11:09)
[2024-10-26] MEDS: SODIUM CHLORIDE 1 GM TABLET PO ×3 (09:05→18:50)
[2024-10-26 10:38] LABS: Lactate* 3.6 mmol/L (0.5-1.9)
[2024-10-26 11:00] VITALS: BP 123/68; PULSE 120; RESP 24; TEMP 37.3; O2SAT 95
[2024-10-26] MEDS: MAGNESIUM OXIDE 400 MG TABLET PO ×2 (11:07→20:31)
[2024-10-26 11:21] LABS: Troponin I* 0.02 ng/mL (0.01-0.04)
[2024-10-26 11:43] LABS: Influenza Type A Negative (Negative); Influenza Type B Negative (Negative)
[2024-10-26 15:00] VITALS: BP 106/70; PULSE 105; RESP 22; TEMP 36.6; O2SAT 90; O2SAT 91
[2024-10-26 15:06] LABS: Immature Reticulocyte Fraction 22.7 % (2.3-13.4); Reticulocyte Hemoglobin Equivi 34.9 pg (29.0-35.0); Reticulocyte Percent 2.5 % (0.5-2.0); Reticulocytes Absolute 0.08 # (0.03-0.08)
[2024-10-26] MEDS: FLUDROCORTISONE ACETATE 0.1 MG TABLET PO (17:37)
[2024-10-26] MEDS: dexAMETHasone 4 MG/ML VIAL 6 MG IV (17:37)
[2024-10-26] MEDS: ATORVASTATIN CALCIUM 10 MG TABLET PO (17:37)
--- NOTE | 2024-10-26 17:50 | P.IMPN_ITS ---
Progress Note: A&P Assessment and plan (1) Pulmonary emboli: Problem details: Now on apixaban for treatment. - no hypoxia, no tachycardia - CTA 10/23/24: IMPRESSION: Bilateral occlusive and nonocclusive pulmonary emboli in both lower lobes beginning at the segmental level. Overall thrombus burden is moderate. No CT findings of right heart failure. Small right basilar opacity may be a small infarct. Consider follow-up chest CT in 3 months. - TTE 10/23/24: Final Impressions: 1. Normal LV size, normal wall thickness, normal global systolic function with an estimated EF of 55 - 60%. 2. Right ventricular cavity size is mildly enlarged, global systolic RV function is normal. 3. The aortic valve is probably trileaflet, mild stenosis and no regurgitation. The aortic valve peak velocity is 2.3 m/s, the peak gradient is 20 mmHg, and the mean gradient is 13 mmHg. The aortic valve area is 1.96 cm?? with a dimensionless index of 0.40. The stroke volume index is 37.5 ml/m??. 4. 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 5. Echo contrast was administered to enhance visualization of all left ventricular segments. Status: Acute (2) Orthostatic hypotension: Problem details: - secondary to dehydration was presumed on admission, minimal improvement with IVFs - ddx includes adrenal insufficiency, labs still pending, PE obstructive/cardiogenic, anemia/GI bleeding. Reassuring TTE, no hypoxia, no tachycardia - elevated lactate has resolved but orthostatic hypotension persists, patient remains asymptomatic. Testing for adrenal insufficiency indicated no adrenal insufficiency with normal cortisol response however this was obtained within about 10 hours of IV hydrocortisone. I am going to repeat the test because I am unsure if it is a valid. Clinically he appears to have adrenal insufficiency. Status: Acute (3) Diarrhea: Problem details: On and off diarrhea for [address] scan prior to admission showed ascending colon colitis. Status: Resolved (4) DVT (deep venous thrombosis): Problem details: Current DVT with PE. By history he has an IVC filter in place from over 2 decades ago. Not noted on CT scan. Anticoagulate. Status: Suspected (5) Dehydration: Problem details: Given IV fluids for dehydration from diarrhea and hypotension. Improved some but then became volume overloaded. Then received diuresis. Status: Acute (6) Thrombocytopenia: Problem details: Thrombocytopenia plus anemia. Cause uncertain. Relatively stable Status: Acute (7) Anemia: Problem details: Patient is chronically on iron therapy. This has been stopped. Iron studies show a high ferritin, greater than 1000 and high iron saturation 63%. Cause of anemia uncertain. Status: Acute (8) Elevated ferritin: Problem details: -ferritin > 1000. Iron saturation 63%. -iron supplement stopped Hemochromatosis? Status: Acute (9) Hyponatremia: Problem details: Continue to monitor Status: Acute (10) Hypokalemia: Problem details: Replace and follow Status: Acute (11) LFTs abnormal: Problem details: -Total bilirubin chronically elevated, but usually in the 1.3-1.4 range, AST and INR are also mildly elevated, LFTs wnl per oupatient chart -ddx: shock liver/hypotension, related to colitis, new diagnosis of cirrhosis -Ultrasound shows unremarkable liver with normal contour, no convincing evidence for cirrhosis, follow LFTs -known history of hepatitis-C (negative viral load 2021) Status: Acute (12) Deafness: Problem details: - ASL and lip reading Status: Chronic (13) Obesity: Problem details: BMI 39.3 Status: Acute (14) Lactic acidosis: Problem details: Monitor for active infection. Address hypotension. Follow. Status: Acute Plan 69-year-old male with multiple acute and chronic problems noted above. Currently does not have a clear diagnosis to explain many of his symptoms, abnormal vital signs, abnormal lab tests. Will continue to monitor and evaluate and test as needed to clarify the proper diagnosis and treatment. Plans discussed with the patient, his sister and mother. Total time spent today is 75 minutes in evaluation management Subjective Date Seen: 10/26/24 Interval history: Admission H&P: Van Barrett is a 69 year old male with a history of coronary artery disease, alcohol abuse, hearing loss, hepatitis-C, cerebrovascular accident, colon polyp, hyperlipidemia, and vitamin B deficiency who started having URI symptoms and diarrhea at the end of August and has had ongoing dizziness and unintentional weight loss since then. He saw Dr. Hammonds in clinic on 09/27, Dr. Johnson to on 10/14 at which time he got IV fluids, went to the emergency room on 10/17 with persistent diarrhea, dizziness, and low blood pressure for which he got 2 L IV fluids and Lomotil. Diarrhea finally stopped a few days ago, but he continues to have dizziness whenever he stands up and fatigue. After the ER visit, he did stop amlodipine but continues to take metoprolol. Today he saw his primary care provider in clinic for persistent symptoms continues to note weight loss, now around 20 lb total. His blood pressure was low, 88/58 labs were drawn, but they were all sent out and are not expected to result until tomorrow. He is also complaining of abdominal pain in the center of his abdomen. He denies nausea, but still does not have much of an appetite. A CT abdomen and pelvis was obtained which showed likely clot in the right common femoral vein the and right inguinal vein. He is on Plavix for his tory of coronary artery disease with stents. For low blood pressure he was given 2 L of IV fluids in the clinic although the patient tells me he received 1.5 L. Although his blood pressure has improved, he continues to endorse dizziness with standing. Additional history: Obtained from patient and sister. Patient reports being ill for about 6 weeks. This began primarily with diarrhea. The diarrhea has gotten better and gotten worse a couple times over the last 6 weeks. He has had no bowel movement in the last few days. There was no bloody diarrhea. CT scan in the clinic raise the possibility of colitis in the ascending colon. Incidentally noted was a DVT in the right common femoral vein and proximal superficial femoral veins. Likely superficial venous thrombosis in the medial right groin. Fatty liver also suspected. Patient has a history of a stroke at around age 46. He tells me at that time he had an IVC filter placed. It is not clear if this was a paradoxical embolism. He is not known to have a PFO or ASD. It is not clear that he was placed on anticoagulation. He apparently has been on Plavix and aspirin since that time. It is not clear if he has had a problem with bleeding from previous treatments. Apparently the IVC filter is still in place. He is not known to have atrial fibrillation. His echocardiogram obtained on this admission is unremarkable. Testing for adrenal insufficiency was unremarkable so corticosteroids/hydrocortisone was discontinued. Since then patient feels much worse today. Weak, tired, no appetite. I suspect to steroid responsive condition possibly adrenal insufficiency. Due to receiving hydrocortisone before his cosyntropin stim test I will repeat the test tomorrow Exam Const: Vital Signs, click to edit/add: Vital Signs - 24 hr 10/25/24 20:51 10/25/24 23:32 10/25/24 23:35 Temperature Pulse Rate 77 Pulse Rate [Pulse Oximeter] 71 Pulse Rate [orthos tatic lying] Pulse Rate [orthos tatic sitting] Pulse Rate [orthos tatic standing] Respiratory Rate 18 18 Blood Pressure [Le ft Arm] 109/86 Blood Pressure [or thostatic lying] Blood Pressure [or thostatic sitting] Blood Pressure [or thostatic standing ] Pulse Oximetry 95 92 Oxygen Delivery Pa thod Room Air Room Air 10/25/24 23:35 10/26/24 04:39 10/26/24 07:00 Temperature 97.3 F L Pulse Rate 116 H Pulse Rate [Pulse Oximeter] 62 72 Pulse Rate [orthos tatic lying] Pulse Rate [orthos tatic sitting] Pulse Rate [orthos tatic standing] Respiratory Rate 18 18 Blood Pressure [Le ft Arm] 111/77 121/86 Blood Pressure [or thostatic lying] Blood Pressure [or thostatic sitting] Blood Pressure [or thostatic standing ] Pulse Oximetry 92 92 [facility] 10/26/24 08:30 10/26/24 08:30 10/26/24 08:30 Temperature Pulse Rate Pulse Rate [Pulse Oximeter] 110 H Pulse Rate [orthos tatic lying] 107 H Pulse Rate [orthos tatic sitting] 110 H Pulse Rate [orthos tatic standing] 115 H Respiratory Rate 22 22 Blood Pressure [Le ft Arm] Blood Pressure [or thostatic lying] 134/107 H Blood Pressure [or thostatic sitting] 127/76 Blood Pressure [or thostatic standing ] 92/51 L Pulse Oximetry 93 Oxygen Delivery Pa thod Room Air 10/26/24 11:00 10/26/24 15:00 Temperature 99.1 F 97.8 F Pulse Rate Pulse Rate [Pulse Oximeter] 120 H 105 H Pulse Rate [orthos tatic lying] Pulse Rate [orthos tatic sitting] Pulse Rate [orthos tatic standing] Respiratory Rate 24 22 Blood Pressure [Le ft Arm] 123/68 106/70 Blood Pressure [or thostatic lying] Blood Pressure [or thostatic sitting] Blood Pressure [or thostatic standing ] Pulse Oximetry 95 90 Oxygen Delivery Pa thod Room Air Room Air Labs Labs: Laboratory Results - last 24 hr 10/24/24 10/24/24 10/24/24 07:15 07:15 07:45 WBC RBC Hgb Hct MCV MCH MCHC RDW Coeff of Eliseo Plt Count Neut % (Auto) Lymph % (Auto) [place] % (Auto) Eos % (Auto) Baso % (Auto) Neut # (Auto) Lymph # (Auto) [place] # (Auto) Eos # (Auto) Baso # (Auto) Abs Immat Gran (auto) Imm/Tot Granulo (auto) Absolute Retic Percent Retic Immature Retic Fraction Retic Hgb Equivalent INR Sodium Potassium Chloride Carbon Dioxide Anion Gap BUN Creatinine Estimated Creat Clear Estimated GFR Glucose Lactate Calcium Magnesium Total Bilirubin Direct Bilirubin AST ALT Alkaline Phosphatase Troponin I Total Protein Albumin Aldosterone 5.6 Cortisol 36.8 37.0 Cortisol 30 Minute 38.1 Cortisol 60 Minute Influenza Type A Ag Influenza Type B Ag Lab Acknowledgement 10/24/24 10/26/24 10/26/24 08:16 06:05 07:41 WBC 5.64 RBC 3.34 L Hgb 9.8 L Hct 29.5 L MCV 88 MCH 29 MCHC 33 RDW Coeff of Eliseo 15.6 H Plt Count 124 L Neut % (Auto) 47.0 Lymph % (Auto) 43.4 [place] % (Auto) 7.6 Eos % (Auto) 0.7 Baso % (Auto) 0.4 Neut # (Auto) 2.65 Lymph # (Auto) 2.45 [place] # (Auto) 0.40 Eos # (Auto) 0.04 Baso # (Auto) 0.02 Abs Immat Gran (auto) 0.05 Imm/Tot Granulo (auto) 0.9 Absolute Retic Percent Retic Immature Retic Fraction Retic Hgb Equivalent INR 1.04 Sodium 134 L Potassium 2.9 L* Chloride 102 Carbon Dioxide 28 Anion Gap 4 L BUN 7 Creatinine 0.6 Estimated Creat Clear 70.70 Estimated GFR 105 Glucose 75 Lactate Calcium 7.2 L Magnesium 1.6 Total Bilirubin 1.2 Direct Bilirubin 0.3 AST 92 H ALT 54 H Alkaline Phosphatase 70 Troponin I Total Protein 5.1 L Albumin 2.2 L Aldosterone Cortisol Cortisol 30 Minute Cortisol 60 Minute 39.4 Influenza Type A Ag Influenza Type B Ag Lab Acknowledgement Test Added 10/26/24 10/26/24 10/26/24 10:19 11:10 14:50 WBC RBC Hgb Hct MCV MCH MCHC RDW Coeff of Eliseo Plt Count Neut % (Auto) Lymph % (Auto) [place] % (Auto) Eos % (Auto) Baso % (Auto) Neut # (Auto) Lymph # (Auto) [place] # (Auto) Eos # (Auto) Baso # (Auto) Abs Immat Gran (auto) Imm/Tot Granulo (auto) Absolute Retic 0.08 Percent Retic 2.5 H Immature Retic Fraction 22.7 H Retic Hgb Equivalent 34.9 INR Sodium Potassium Chloride Carbon Dioxide Anion Gap BUN Creatinine Estimated Creat Clear Estimated GFR Glucose Lactate 3.6 H Calcium Magnesium Total Bilirubin Direct Bilirubin AST ALT Alkaline Phosphatase Troponin I 0.02 Total Protein Albumin Aldosterone Cortisol Cortisol 30 Minute Cortisol 60 Minute Influenza Type A Ag Negative Influenza Type B Ag Negative Lab Acknowledgement
[2024-10-26] MEDS: APIXABAN 5 MG TABLET 10 MG PO ×2 (18:50→20:30)
[2024-10-26 19:00] VITALS: BP 108/73; PULSE 84; RESP 20; TEMP 36.6; O2SAT 92
[2024-10-26] MEDS: SODIUM CHLORIDE 0.9 % (FLUSH) 10 ML SYRINGE 5 ML IVF (20:31)
[2024-10-27] VITALS (10 sets, daily range): BP systolic 103–132; BP diastolic 70–86; PULSE 67–93; RESP 18–20; TEMP 36.4–36.7; O2SAT 92–93
[2024-10-27] MEDS: COSYNTROPIN 0.25 MG VIAL IVP (07:24)
[2024-10-27 07:40] LABS: Lactate* 1.6 mmol/L (0.5-1.9)
[2024-10-27 07:44] LABS: Hematocrit 29.4 % (37.0-53.0); Hemoglobin* 9.9 gm/dL (13.5-17.5); Mean Corpuscular HGB Conc 34 gm/dL (32-36); Mean Corpuscular Hemoglobin 30 pg (26-34); Mean Corpuscular Volume 88 fL (80-100); Platelet Count* 125 K/uL (140-440); RDW Coefficient of Variation % 15.8 % (11.5-15.5); Red Blood Count 3.33 m/uL (4.30-5.90)
--- NOTE | 2024-10-27 07:47 | PC.NURSE ---
End of shift [id number] ? Pt alert, oriented, cooperative. Pt up with standby assistance and walker/gait belt. Continent of bowel and bladder during shift. Tolerating RA and regular diet/fluids. Pt denies pain, SOB. Pt reports ?feeling like crap? during the day today and appears visibly fatigued in the evening, more so with exertion. Pt observed to recover appropriately with rest. Pt appears to be resting comfortably in chair with call light within reach. Expanse downtime from approximately [id number]
[2024-10-27 07:56] LABS: Albumin* 2.3 g/dL (3.3-5.0)
[2024-10-27 07:57] LABS: Chloride* 101 mmol/L (96-114); Potassium* 3.3 mmol/L (3.6-5.1); Sodium* 134 mmol/L (135-149)
[2024-10-27 07:59] LABS: Anion Gap 3 mEq/L (7-15); Bilirubin Direct* 0.5 mg/dL (0.0-0.5); Bilirubin Total* 1.6 mg/dL (0.1-1.5); Carbon Dioxide* 30 mmol/L (20-32); Creatinine* 0.6 mg/dL (0.5-1.5); Estimated Glomerular Filt Rate 105 ml/min
[2024-10-27 08:00] LABS: Alanine Aminotransferase* 67 U/L (4-50); Alkaline Phosphatase* 62 U/L (40-150); Aspartate Amino Transferase* 95 U/L (12-35); Blood Urea Nitrogen* 9 mg/dL (7-30); Calcium* 7.3 mg/dL (8.4-10.6); Glucose* 95 mg/dL (60-115); Total Protein* 5.1 g/dL (6.0-8.3)
[2024-10-27 08:09] LABS: Renin Activity 0.3 ng/mL/hr
[2024-10-27 08:38] LABS: Slide Review Reflex Yes
[2024-10-27 08:39] LABS: Slide Review Acceptable Review (Acceptable)
[2024-10-27] MEDS: MAGNESIUM OXIDE 400 MG TABLET PO ×2 (10:24→21:36)
[2024-10-27] MEDS: POTASSIUM CHLORIDE 10 MEQ CAPSULE ER PO (10:24)
[2024-10-27] MEDS: POTASSIUM BICARB 25 MEQ EFFERVESCENT TAB PO ×2 (10:25→13:17)
[2024-10-27] MEDS: APIXABAN 5 MG TABLET 10 MG PO ×2 (10:25→21:37)
[2024-10-27] MEDS: SODIUM CHLORIDE 1 GM TABLET PO ×3 (10:26→17:31)
[2024-10-27] MEDS: dexAMETHasone 2 MG TABLET 6 MG PO (10:26)
[2024-10-27] MEDS: FLUDROCORTISONE ACETATE 0.1 MG TABLET PO (10:26)
[2024-10-27] MEDS: ATORVASTATIN CALCIUM 10 MG TABLET PO (17:31)
--- NOTE | 2024-10-27 18:56 | PC.NURSE ---
The patient reports feeling better today, also appears to look more energized today, VSS on RA. No reports of pain this shift. The patient showered with OT today and went on multiple walks around the unit using 4w RW. Appetite is reassuring, electrolyte replacement remains. Call light within reach. The patient reads lips, although process environmental technician was in person today for some time and is available on the Ipad. Bina JIANG BSN
--- NOTE | 2024-10-27 21:20 | PM.IMPN1 ---
Progress Note: A&P Assessment and plan (1) Pulmonary emboli: Problem details: Now on apixaban for treatment. - no hypoxia, no tachycardia - CTA 10/23/24: IMPRESSION: Bilateral occlusive and nonocclusive pulmonary emboli in both lower lobes beginning at the segmental level. Overall thrombus burden is moderate. No CT findings of right heart failure. Small right basilar opacity may be a small infarct. Consider follow-up chest CT in 3 months. - TTE 10/23/24: Final Impressions: 1. Normal LV size, normal wall thickness, normal global systolic function with an estimated EF of 55 - 60%. 2. Right ventricular cavity size is mildly enlarged, global systolic RV function is normal. 3. The aortic valve is probably trileaflet, mild stenosis and no regurgitation. The aortic valve peak velocity is 2.3 m/s, the peak gradient is 20 mmHg, and the mean gradient is 13 mmHg. The aortic valve area is 1.96 cm?? with a dimensionless index of 0.40. The stroke volume index is 37.5 ml/m??. 4. 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 5. Echo contrast was administered to enhance visualization of all left ventricular segments. Status: Acute (2) Orthostatic hypotension: Problem details: Initially this was thought secondary to dehydration from diarrhea and poor oral intake. Despite fluid resuscitation patient continues to have orthostatic hypotension. Improved markedly with steroid treatment with hydrocortisone for suspected adrenal insufficiency. When steroids were stopped he felt worse and hypotension got worse again. Improved after restarting steroid Status: Acute (3) Diarrhea: Problem details: On and off diarrhea for [address] scan prior to admission showed ascending colon colitis. Normal bowel movement on October 27 Status: Resolved (4) DVT (deep venous thrombosis): Problem details: Current DVT with PE. Anticoagulate, possibly indefinitely. Status: Suspected (5) Dehydration: Problem details: Given IV fluids for dehydration from diarrhea and hypotension. Improved some but then became volume overloaded. Then received diuresis. Now appears mildly volume overloaded with systemic corticosteroids and Florinef. Stop Florinef and taper steroids Status: Acute (6) Thrombocytopenia: Problem details: Thrombocytopenia plus anemia. Cause uncertain. Relatively stable Status: Acute (7) Anemia: Problem details: Patient is chronically on iron therapy. This has been stopped. Iron studies show a high ferritin, greater than 1000 and high iron saturation 63%. Cause of anemia uncertain. Status: Acute (8) Elevated ferritin: Problem details: -ferritin > 1000. Iron saturation 63%. -iron supplement stopped Hemochromatosis? Status: Acute (9) Hyponatremia: Problem details: Continue to monitor Status: Acute (10) Hypokalemia: Problem details: Replace and follow Status: Acute (11) LFTs abnormal: Problem details: -Total bilirubin chronically elevated, but usually in the 1.3-1.4 range, AST and INR are also mildly elevated, LFTs wnl per oupatient chart -ddx: shock liver/hypotension, related to colitis, new diagnosis of cirrhosis -Ultrasound shows unremarkable liver with normal contour, no convincing evidence for cirrhosis, follow LFTs -known history of hepatitis-C (negative viral load 2021) Status: Acute (12) Deafness: Problem details: - ASL and lip reading Status: Chronic (13) Obesity: Problem details: BMI 39.3 Status: Acute (14) Lactic acidosis: Problem details: Monitor for active infection. Address hypotension. No evidence of significant infection. Follow. Status: Acute Plan Continue in hospital for ongoing evaluation and management of multiple above medical problems including a PE, orthostatic hypotension, steroid responsive symptoms suggestive of adrenal insufficiency, iron overload. Plan of care discussed with patient and family. Total time spent today is 45 minutes Subjective Date Seen: 10/27/24 Interval history: Admission H&P: Van Barrett is a 69 year old male with a history of coronary artery disease, alcohol abuse, hearing loss, hepatitis-C, cerebrovascular accident, colon polyp, hyperlipidemia, and vitamin B deficiency who started having URI symptoms and diarrhea at the end of August and has had ongoing dizziness and unintentional weight loss since then. He saw Dr. Hammonds in clinic on 09/27, Dr. Johnson to on 10/14 at which time he got IV fluids, went to the emergency room on 10/17 with persistent diarrhea, dizziness, and low blood pressure for which he got 2 L IV fluids and Lomotil. Diarrhea finally stopped a few days ago, but he continues to have dizziness whenever he stands up and fatigue. After the ER visit, he did stop amlodipine but continues to take metoprolol. Today he saw his primary care provider in clinic for persistent symptoms continues to note weight loss, now around 20 lb total. His blood pressure was low, 88/58 labs were drawn, but they were all sent out and are not expected to result until tomorrow. He is also complaining of abdominal pain in the center of his abdomen. He denies nausea, but still does not have much of an appetite. A CT abdomen and pelvis was obtained which showed likely clot in the right common femoral vein the and right inguinal vein. He is on Plavix for history of coronary artery disease with stents. For low blood pressure he was given 2 L of IV fluids in the clinic although the patient tells me he received 1.5 L. Although his blood pressure has improved, he continues to endorse dizziness with standing. Additional history: Obtained from patient and sister. Patient reports being ill for about 6 weeks. This began primarily with diarrhea. The diarrhea has gotten better and gotten worse a couple times over the last 6 weeks. He has had no bowel movement in the last few days. There was no bloody diarrhea. CT scan in the clinic raise the possibility of colitis in the ascending colon. Incidentally noted was a DVT in the right common femoral vein and proximal superficial femoral veins. Likely superficial venous thrombosis in the medial right groin. Fatty liver also suspected. Patient has a history of a stroke at around age 46. He reports he had an IVC filter but not seen on CT scan. It is not clear that he was placed on anticoagulation. He apparently has been on Plavix and aspirin since that time. It is not clear if he has had a problem with bleeding from previous treatments. Apparently the IVC filter is still in place. He is not known to have atrial fibrillation. His echocardiogram obtained on this admission is unremarkable. Testing for adrenal insufficiency was unremarkable so corticosteroids/hydrocortisone was discontinued October 25 in the evening. Since then patient feels much worse October 26. Weak, tired, no appetite. I suspect to steroid responsive condition possibly adrenal insufficiency. Due to receiving hydrocortisone before his cosyntropin stim test I will repeat the test tomorrow 10/27/2024: Patient reports feeling much better again today. He feels like his strength is close to normal. His appetite is back to normal. He is having no more diarrhea. Had a normal bowel movement today. No concerns about breathing. No abdominal pain. He is seen in again today with assistance of a solar energy consultant and designer. Spoke with patient and family with seismic interpreter present Exam Narrative: Exam Narrative: He is alert and appears in no distress. Respirations are clear to auscultation. Cardiovascular: S1, S2, regular rate and rhythm. Abdomen: Bowel sounds active. Abdomen is soft without tenderness or mass. 2+ edema in upper and lower extremities. Const: Vital Signs, click to edit/add: Vital Signs - 24 hr 10/27/24 00:26 10/27/24 00:29 10/27/24 03:48 Temperature 98.0 F Pulse Rate 67 Pulse Rate [Pulse Oximeter] 82 Respiratory Rate 20 20 Blood Pressure [Le ft Arm] 132/86 Pulse Oximetry 92 93 Oxygen Delivery Me thod Room Air Room Air 10/27/24 07:00 10/27/24 07:00 10/27/24 09:00 Temperature 97.8 F Pulse Rate 71 Pulse Rate [Pulse Oximeter] 93 Respiratory Rate 20 18 Blood Pressure [Le ft Arm] 104/73 Pulse Oximetry 93 93 Oxygen Delivery Me thod Room Air Room Air 10/27/24 11:00 10/27/24 15:00 10/27/24 15:00 Temperature 98.0 F 97.5 F L Pulse Rate Pulse Rate [Pulse Oximeter] 84 90 83 Respiratory Rate 20 18 18 Blood Pressure [Le ft Arm] 118/85 103/70 Pulse Oximetry 93 93 Oxygen Delivery Me thod Room Air Room Air 10/27/24 15:00 Temperature Pulse Rate Pulse Rate [Pulse Oximeter] Respiratory Rate Blood Pressure [Le ft Arm] Pulse Oximetry 93 Oxygen Delivery Me thod Room Air Documenting provider has reviewed patient's vital signs: yes Labs Labs: Laboratory Results - last 24 hr 10/24/24 10/27/24 07:15 07:25 WBC 7.10 RBC 3.33 L Hgb 9.9 L Hct 29.4 L MCV 88 MCH 30 MCHC 34 RDW Coeff of Eliseo 15.8 H Plt Count 125 L Neut % (Auto) 68.0 Lymph % (Auto) 28.0 [place] % (Auto) 3.0 Eos % (Auto) 1.0 Baso % (Auto) 0.0 Neut # (Auto) 4.80 Lymph # (Auto) 2.00 [place] # (Auto) 0.20 Eos # (Auto) 0.10 Baso # (Auto) 0.00 Abs Immat Gran (auto) 0.00 Imm/Tot Granulo (auto) 0.0 Diff Slide Review Acceptable Review Sodium 134 L Potassium 3.3 L Chloride 101 Carbon Dioxide 30 Anion Gap 3 L BUN 9 Creatinine 0.6 Estimated Creat Clear 70.70 Estimated GFR 105 Glucose 95 Lactate 1.6 Calcium 7.3 L Total Bilirubin 1.6 H Direct Bilirubin 0.5 AST 95 H ALT 67 H Alkaline Phosphatase 62 Total Protein 5.1 L Albumin 2.3 L Renin Baseline 0.3
[2024-10-27] MEDS: SODIUM CHLORIDE 0.9 % (FLUSH) 10 ML SYRINGE 5 ML IVF (21:37)
[2024-10-28] VITALS (8 sets, daily range): BP systolic 103–135; BP diastolic 70–92; PULSE 71–106; RESP 16–20; TEMP 36.4–38.9; O2SAT 87–95
--- NOTE | 2024-10-28 07:34 | PC.NURSE ---
End of shift [id number] ? Pt alert, oriented, cooperative. Pt up with standby assistance and walker/gait belt. Continent of bowel and bladder during shift. Tolerating RA and regular diet/fluids. Pt reported ?feeling chills? near end of shift. Temperature reading indicated that pt to be afebrile. Warm blankets and aqua K pad given to increase pt comfort. Pt appears to be resting in bed with call light within reach.
--- NOTE | 2024-10-28 09:12 | CRLHL7_ITS ---
For Patients: As a result of the 21st Century Cures Act, medical imaging exams and procedure reports are released immediately into your electronic medical record. You may view this report before your referring provider. If you have questions, please contact your health care provider. INDICATION: Fever, hypotension, hypoxia. Known DVT. Known colitis. COMPARISON: 10/22/2024, 10/23/2024 TECHNIQUE: CT chest, abdomen, and pelvis with contrast. Multiplanar axial, coronal, and sagittal reformats are included. MIP images to improve detection of pulmonary nodules are included. Intravenous contrast: 134 mL Isovue 370. FINDINGS: CHEST Airway: Expiratory appearance of the trachea. Lungs: Significant respiratory motion artifact. Expiratory appearance of the lungs. Bibasilar atelectasis. Small nodules could be obscured. There are no large areas of infarct or consolidation seen. No edema or emphysema. Pleura: There are trace bilateral pleural effusions that are new compared to prior. No loculation or pleural thickening. No pneumothorax. Lymph nodes: No thoracic adenopathy. Mediastinum: No pneumomediastinum. No mass. Heart and great vessels: No pericardial effusion. Cardiac chambers are mildly dilated. Scattered atherosclerotic plaques. No aortic aneurysm. Normal caliber of the main pulmonary artery. There are a few bilateral lower lobe pulmonary emboli again seen in a similar distribution. Thrombus burden is slightly decreased. No new pulmonary emboli seen. Chest wall: Normal. No masses. ABDOMEN AND PELVIS Liver: Normal. No mass. Gallbladder and bile ducts: Normal gallbladder. No bile duct dilation. Pancreas: Normal. Spleen: Normal. Adrenal glands: Normal. Kidneys: Normal parenchyma. No cyst or solid mass. No calculi. No urinary tract dilation. Urinary bladder: The urinary bladder is moderately distended. There is a tiny amount of air in the bladder that is probably related to prior catheterization. Pelvis: There is some streak artifact across the pelvis from the hip arthroplasty. No pelvic cyst or mass. Vessels: There are a few atherosclerotic vascular calcifications. No abdominal aortic aneurysm. The iliac arteries are patent. The mesenteric arteries are patent. The mesenteric and portal veins are patent. The IVC, common, and external iliac veins are all patent. Partially occlusive thrombus again noted in the right common femoral vein, proximal femoral vein, and greater saphenous vein. Bowel: No dilated or inflamed bowel. Normal appendix. Mild to moderate stool burden. Lymph nodes: No adenopathy. Peritoneum: No ascites or free air. Abdominal wall: Fat containing umbilical hernia. Mild abdominal wall anasarca. BONES: Right hip arthroplasty. No adjacent fluid collection. No acute or healing fractures. No focal bone lesions. IMPRESSION: 1. Very small bilateral pleural effusions are new compared to prior. 2. Decreased pulmonary embolus burden. No CT findings of acute right heart failure. 3. Unchanged appearance of the right common femoral, femoral, and greater saphenous deep and superficial vein thrombosis. No extension to involve the deep pelvic veins or IVC. 4. There is respiratory motion artifact throughout the lungs. 5. No obvious infectious source identified in the chest, abdomen, or pelvis. Please note that all CT scans at this facility use dose modulation, iterative reconstruction, and/or weight-based dosing when appropriate to reduce radiation dose to as low as reasonably achievable. Dictated by Lala Vasques MD @ 10/28/2024 11:01:26 AM (Electronically Signed)
[2024-10-28] MEDS: ACETAMINOPHEN 325 MG TABLET 975 MG PO (09:21)
[2024-10-28 09:23] LABS: Lactate Sepsis w/Reflex* 1.4 mmol/L (0.5-1.9)
[2024-10-28 09:25] LABS: Basophils Absolute Auto 0.02 K/uL (0.00-0.30); Basophils Percent Auto 0.2 % (0.0-3.0); Eosinophils Absolute Auto 0.03 K/uL (0.00-0.50); Eosinophils Percent Auto 0.4 % (0.0-7.0); Hematocrit 31.1 % (37.0-53.0); Hemoglobin* 10.4 gm/dL (13.5-17.5); Immature Granulocytes Abs Auto 0.07 K/uL (0.00-0.30); Immature Granulocytes Pct Auto 0.8 %; Lymphocytes Absolute Auto 3.55 K/uL (0.90-2.90); Lymphocytes Percent Auto 43.1 % (20-44); Mean Corpuscular HGB Conc 33 gm/dL (32-36); Mean Corpuscular Hemoglobin 30 pg (26-34); Mean Corpuscular Volume 88 fL (80-100); Monocytes Percent Auto 7.6 % (0.0-11.0); Neutrophils Absolute Auto 3.94 K/uL (1.7-7.0); Neutrophils Percent Auto 47.9 % (42.0-72.0); Platelet Count* 129 K/uL (140-440); RDW Coefficient of Variation % 16.3 % (11.5-15.5); Red Blood Count 3.52 m/uL (4.30-5.90); White Blood Count* 8.24 K/uL (4.50-11.00)
[2024-10-28 09:29] LABS: Slide Review Reflex Yes
[2024-10-28] MEDS: POTASSIUM CHLORIDE 10 MEQ CAPSULE ER PO (09:49)
[2024-10-28] MEDS: SODIUM CHLORIDE 0.9 % (FLUSH) 10 ML SYRINGE 5 ML IVF (09:49)
[2024-10-28] MEDS: APIXABAN 5 MG TABLET 10 MG PO (09:49)
[2024-10-28] MEDS: predniSONE 10 MG TABLET PO (09:50)
[2024-10-28] MEDS: SENNOSIDES/DOCUSATE TABLET 1 TAB PO (09:50)
[2024-10-28] MEDS: MAGNESIUM OXIDE 400 MG TABLET PO (09:50)
[2024-10-28] MEDS: SODIUM CHLORIDE 1 GM TABLET PO ×2 (09:50→13:56)
[2024-10-28 09:51] LABS: Albumin* 2.4 g/dL (3.3-5.0); Chloride* 97 mmol/L (96-114); Potassium* 3.2 mmol/L (3.6-5.1); Sodium* 131 mmol/L (135-149)
[2024-10-28] MEDS: LACTATED RINGERS 1000 ML 1,000 ML 125 ML IV (09:51)
[2024-10-28 09:53] LABS: Creatinine* 0.6 mg/dL (0.5-1.5); Estimated Glomerular Filt Rate 105 ml/min
[2024-10-28 09:54] LABS: Alanine Aminotransferase* 89 U/L (4-50); Alkaline Phosphatase* 73 U/L (40-150); Anion Gap 2 mEq/L (7-15); Aspartate Amino Transferase* 107 U/L (12-35); Bilirubin Direct* 0.4 mg/dL (0.0-0.5); Bilirubin Total* 1.5 mg/dL (0.1-1.5); Blood Urea Nitrogen* 10 mg/dL (7-30); Carbon Dioxide* 32 mmol/L (20-32); Glucose* 73 mg/dL (60-115); Total Protein* 5.3 g/dL (6.0-8.3)
[2024-10-28 09:55] LABS: Calcium* 7.3 mg/dL (8.4-10.6)
[2024-10-28 13:12] LABS: Appearance Urine Clear (Clear); Bilirubin Urine Negative (Negative); Blood Urine Negative (Negative); Color Urine Yellow (Yellow); Glucose Urine Negative (Negative); Ketones Urine Negative (Negative); Leukocyte Esterase Urine Negative (Negative); Nitrite Urine Negative (Negative); Protein Urine Negative (Negative); Specific Gravity Urine <= 1.005 (1.000-1.030)
--- NOTE | 2024-10-28 13:31 | PM.DST ---
Transfer Discharge Sum: Prov Provider Date Seen: 10/28/24 Date of admission: 10/23/24 09:12 Primary care physician: Josefina Crum DO Attending physician on admission: Sadaf Kat Attending physician on discharge: David Jones Anticipated date of transfer: 10/28/24 Receiving physician/facility: [facility] DS: Diagnosis Discharge Diagnosis (1) Fever: Status: Acute Problem details: Patient has intermittent episodes of shaking chills. Previously did not have fevers. Today he spiked a fever to 102.1 F. evaluation has not shown an infectious etiology. Blood in urine cultures done on admission are negative. Repeat blood and urine cultures today. CT chest abdomen and pelvis unremarkable today (2) Orthostatic hypotension: Status: Acute Problem details: Initially this was thought secondary to dehydration from diarrhea and poor oral intake. Despite fluid resuscitation patient continues to have orthostatic hypotension. Improved markedly with steroid treatment with hydrocortisone for suspected adrenal insufficiency. When steroids were stopped he felt worse and hypotension got worse again. Improved after restarting steroid. (3) Pulmonary emboli: Status: Acute Problem details: Now on apixaban for treatment. - no hypoxia, no tachycardia - CTA 10/23/24: IMPRESSION: Bilateral occlusive and nonocclusive pulmonary emboli in both lower lobes beginning at the segmental level. Overall thrombus burden is moderate. No CT findings of right heart failure. Small right basilar opacity may be a small infarct. Consider follow-up chest CT in [address] chest on October 28 shows reduction in clot burden - TTE 10/23/24: Final Impressions: 1. Normal LV size, normal wall thickness, normal global systolic function with an estimated EF of 55 - 60%. 2. Right ventricular cavity size is mildly enlarged, global systolic RV function is normal. 3. The aortic valve is probably trileaflet, mild stenosis and no regurgitation. The aortic valve peak velocity is 2.3 m/s, the peak gradient is 20 mmHg, and the mean gradient is 13 mmHg. The aortic valve area is 1.96 cm?? with a dimensionless index of 0.40. The stroke volume index is 37.5 ml/m??. 4. 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 5. Echo contrast was administered to enhance visualization of all left ventricular segments. (4) Diarrhea: Status: Resolved Problem details: On and off diarrhea for [address] scan prior to admission showed ascending colon colitis. Repeat CT did not note colitis today. Normal bowel movement on October 27. (5) Dehydration: Status: Acute Problem details: Given IV fluids for dehydration from diarrhea and hypotension. Improved some but then became volume overloaded. Then received diuresis. Now appears mildly volume overloaded with systemic corticosteroids and Florinef. Stop Florinef and taper steroids. (6) DVT (deep venous thrombosis): Status: Suspected Problem details: Current DVT with PE. Anticoagulate, possibly indefinitely. (7) Thrombocytopenia: Status: Acute Problem details: Thrombocytopenia plus anemia. Cause uncertain. Relatively stable (8) Anemia: Status: Acute Problem details: Patient is chronically on iron therapy. This has been stopped. Iron studies show a high ferritin, greater than 1000 and high iron saturation 63%. Cause of anemia uncertain. (9) Hyponatremia: Status: Acute Problem details: Continue to monitor (10) Hypokalemia: Status: Acute Problem details: Replace and follow (11) LFTs abnormal: Status: Acute Problem details: Has had mildly elevated bilirubin in the past. Currently bilirubin is normal. Transaminases are elevated during this hospital stay. AST mildly greater than ALT. Alk-phos is normal. CT shows hepatic steatosis. Gallbladder ultrasound shows sludge without cholecystitis. History of hepatitis-C which was treated in the past. In [facility] records hepatitis serologies were done January of 2022 which were unremarkable. Hemochromatosis? (12) Deafness: Status: Chronic Problem details: - ASL and lip reading (13) Obesity: Status: Acute Problem details: BMI 39.3 (14) Elevated ferritin: Status: Acute Problem details: -ferritin > 1000. Iron saturation 63%. -iron supplement stopped Hemochromatosis evaluation pending. No family history of hemochromatosis. (15) Lactic acidosis: Status: Acute Problem details: Monitor for active infection. Address hypotension. No evidence of significant infection. Follow. (16) Hepatitis C: Status: Acute Problem details: History of hepatitis C infection that was treated. Hepatitis serologies obtained 3 years ago were normal (17) Adrenal insufficiency: Status: Suspected Problem details: Due to persisting orthostatic hypotension anorexia nausea diarrhea, profound weakness and malaise patient was suspected of having adrenal insufficiency. He was started on hydrocortisone and clinically improved quite a bit. Cosyntropin stim test was normal with cortisol levels prior to and after cosyntropin administration in the upper 30s. Hydrocortisone was stopped and patient felt worse within a day. Steroids restarted any felt better relatively quickly. Cosyntropin stim test was repeated because there was concern that the hydrocortisone he received the evening before the test was done may have interfered with the accuracy of the results Transfer Discharge Sum: Med Medications Active and Home Medications: Home Medications amlodipine 10 mg tablet 10 mg PO DAILY 10/03/23 [History Confirmed 10/22/24] atorvastatin 10 mg tablet 10 mg PO DAILY 10/03/23 [History Confirmed 10/22/24] clopidogrel 75 mg tablet 75 mg PO DAILY 10/03/23 [History Confirmed 10/22/24] metoprolol succinate 25 mg tablet,extended release 24 hr 25 mg PO DAILY 10/03/23 [History Confirmed 10/22/24] diphenoxylate-atropine 2.5 mg-0.025 mg tablet (Lomotil) 1 tab PO TID PRN diarrhea #10 tabs 10/17/24 [Rx Confirmed 10/22/24] omeprazole 20 mg capsule,delayed release 20 mg PO DAILY 10/17/24 [History Confirmed 10/22/24] aspirin 81 mg tablet,delayed release (Camryn Low Dose Aspirin) 81 mg PO DAILY 10/22/24 [History Confirmed 10/22/24] cholecalciferol (vitamin D3) 25 mcg (1,000 unit) capsule 25 mcg PO DAILY 10/22/24 [History Confirmed 10/22/24] cyanocobalamin (vitamin B-12) 1,000 mcg capsule 1,000 mcg PO DAILY 10/22/24 [History Confirmed 10/22/24] ferrous sulfate 325 mg (65 mg iron) tablet (Zonia-Time) 325 mg PO DAILY 10/22/24 [History Confirmed 10/22/24] Active Medications Acetaminophen (Acetaminophen 325 Mg Tablet) 975 mg PO Q6H PRN PRN Reason: pain or fever Last Admin: 10/28/24 09:21 Dose: 975 mg Apixaban (Apixaban 5 Mg Tablet) 10 mg PO BID [facility] Last Admin: 10/28/24 09:49 Dose: 10 mg Atorvastatin Calcium (Atorvastatin Calcium 10 Mg Tablet) 10 mg PO QPM [facility] Last Admin: 10/27/24 17:31 Dose: 10 mg Lactated Ringer's (Lactated Ringers 1000 Ml) 1,000 mls @ 50 mls/hr IV .Q20H [facility] Magnesium Oxide (Magnesium Oxide 400 Mg Tablet) 400 mg PO BID [facility] Last Admin: 10/28/24 09:50 Dose: 400 mg Melatonin (Melatonin 3 Mg Tablet) 3 mg PO HS PRN PRN Reason: Insomnia Metoprolol Succinate (Metoprolol Succinate (Xl) 25 Mg Tab) 25 mg PO DAILY [facility] Last Admin: 10/23/24 10:45 Dose: Not Given Omeprazole (Omeprazole [address]) 20 mg PO DAILY@0700 [facility] Last Admin: 10/28/24 06:51 Dose: Not Given Ondansetron HCl (Ondansetron Odt 4 Mg Tab) 4 mg PO Q6H PRN PRN Reason: Nausea And Vomiting Potassium Chloride (Potassium Chloride 10 Meq Capsule Er) 10 meq PO DAILYWM [facility] Last Admin: 10/28/24 09:49 Dose: 10 meq Prednisone (Prednisone 10 Mg Tablet) 10 mg PO DAILYWM [facility] Last Admin: 10/28/24 09:50 Dose: 10 mg Senna/Docusate Sodium (Sennosides/Docusate Tablet) 1 tab PO BID [facility] Last Admin: 10/28/24 09:50 Dose: 1 tab Sodium Chloride (Sodium Chloride 0.9 % (Flush) 10 Ml Syringe) 5 ml IVF .FLUSH PRN Sodium Chloride (Sodium Chloride 0.9 % (Flush) 10 Ml Syringe) 5 ml IVF BID [facility] Last Admin: 10/28/24 09:49 Dose: 5 ml Sodium Chloride (Sodium Chloride 1 Gm Tablet) 1 gm PO TIDWM [facility] Last Admin: 10/28/24 09:50 Dose: 1 gm Transfer Discharge Sum: Hosp Hospital Course Hospital course: Admission H&P: Van Barrett is a 69 year old male with a history of coronary artery disease, alcohol abuse, hearing loss, hepatitis-C, cerebrovascular accident, colon polyp, hyperlipidemia, and vitamin B deficiency who started having URI symptoms and diarrhea at the end of August and has had ongoing dizziness and unintentional weight loss since then. He saw Dr. Hammonds in clinic on 09/27, Dr. Johnson to on 10/14 at which time he got IV fluids, went to the emergency room on 10/17 with persistent diarrhea, dizziness, and low blood pressure for which he got 2 L IV fluids and Lomotil. Diarrhea finally stopped a few days ago, but he continues to have dizziness whenever he stands up and fatigue. After the ER visit, he did stop amlodipine but continues to take metoprolol. Today he saw his primary care provider in clinic for persistent symptoms continues to note weight loss, now around 20 lb total. His blood pressure was low, 88/58 labs were drawn, but they were all sent out and are not expected to result until tomorrow. He is also complaining of abdominal pain in the center of his abdomen. He denies nausea, but still does not have much of an appetite. A CT abdomen and pelvis was obtained which showed likely clot in the right common femoral vein the and right inguinal vein. He is on Plavix for history of coronary artery disease with stents. For low blood pressure he was given 2 L of IV fluids in the clinic although the patient tells me he received 1.5 L. Although his blood pressure has improved, he continues to endorse dizziness with standing. Additional history: Obtained from patient and sister. Patient reports being ill for about 6 weeks. This began primarily with diarrhea. The diarrhea has gotten better and gotten worse a couple times over the last 6 weeks. He has had no bowel movement in the last few days. There was no bloody diarrhea. CT scan in the clinic raise the possibility of colitis in the ascending colon. Incidentally noted was a DVT in the right common femoral vein and proximal superficial femoral veins. Likely superficial venous thrombosis in the medial right groin. Fatty liver also suspected. Patient has a history of a stroke at around age 46. He reports he had an IVC filter but not seen on CT scan. It is not clear that he was placed on anticoagulation. He apparently has been on Plavix and aspirin since that time. It is not clear if he has had a problem with bleeding from previous treatments. Apparently the IVC filter is still in place. He is not known to have atrial fibrillation. His echocardiogram obtained on this admission is unremarkable. Testing for adrenal insufficiency was unremarkable so corticosteroids/hydrocortisone was discontinued October 25 in the evening. Since then patient feels much worse October 26. Weak, tired, no appetite. I suspect to steroid responsive condition possibly adrenal insufficiency. Due to receiving hydrocortisone before his cosyntropin stim test I will repeat the test tomorrow 10/27/2024: Patient reports feeling much better again today. He feels like his strength is close to normal. His appetite is back to normal. He is having no more diarrhea. Had a normal bowel movement today. No concerns about breathing. No abdominal pain. He is seen in again today with assistance of a signal system testing maintainer. Spoke with patient and family with asl interpreter present 10/28/2024: This morning patient spiked a fever to 102.1. With this he had chills fatigue malaise weakness nausea anorexia. Did not have chest pain or abdominal pain. Mild decrease in O2 sats to 90%. Blood pressure was in the normal range. He reports this episode was reminiscent of the episode he had on Monday though he did not have a fever at that time and with episodes he had had at home over the last month. It resolved over a few hours without specific intervention other than Tylenol. Cultures obtained. CT chest abdomen pelvis repeated. Results showed reduction in clot burden in the lungs and no other obvious source of infection. Time Spent with Patient Time attestation: Total time spent providing and/or coordinating transfer services: 75 minutes Exam Narrative: Exam Narrative: Patient is seen initially when he has the fever. He is somewhat diaphoretic but oriented to his circumstances. Eyes normal. Oropharynx normal. Neck is supple without mass or adenopathy. Respirations are clear to auscultation. Cardiovascular: S1, S2, regular rate and rhythm. Abdomen is soft without tenderness or mass. Some voluntary guarding but no focal tenderness. Extremities with 1 to 2+ edema, modestly improved from yesterday. No rash. Repeat examination later when he was feeling better showed no abdominal tenderness or mass. Const: Vital Signs, click to edit/add: Vital Signs - 24 hr 10/27/24 15:00 10/27/24 15:00 10/27/24 15:00 Temperature 97.5 F L Pulse Rate Pulse Rate [Pulse Oximeter] 90 83 Pulse Rate [orthos tatic lying] Pulse Rate [orthos tatic sitting] Pulse Rate [orthos tatic standing] Respiratory Rate 18 18 Blood Pressure [Le ft Arm] 103/70 Blood Pressure [or thostatic lying] Blood Pressure [or thostatic sitting] Blood Pressure [or thostatic standing ] Pulse Oximetry 93 93 Oxygen Delivery Me thod Room Air Room Air 10/27/24 19:00 10/27/24 23:40 10/27/24 23:58 Temperature 97.6 F Pulse Rate 73 Pulse Rate [Pulse Oximeter] 78 Pulse Rate [orthos tatic lying] 70 Pulse Rate [orthos tatic sitting] 79 Pulse Rate [orthos tatic standing] 82 Respiratory Rate 18 Blood Pressure [Le ft Arm] 122/80 Blood Pressure [or thostatic lying] 132/85 Blood Pressure [or thostatic sitting] 118/80 Blood Pressure [or thostatic standing ] 122/78 [facility]ulse Oximetry [facility] 10/27/24 23:58 10/28/24 00:12 10/28/24 05:18 Temperature 97.6 F Pulse Rate Pulse Rate [Pulse Oximeter] 70 93 Pulse Rate [orthos tatic lying] Pulse Rate [orthos tatic sitting] Pulse Rate [orthos tatic standing] Respiratory Rate 20 18 20 Blood Pressure [Le ft Arm] 132/85 131/84 Blood Pressure [or thostatic lying] Blood Pressure [or thostatic sitting] Blood Pressure [or thostatic standing ] Pulse Oximetry 93 91 Oxygen Delivery [facility] Room Air Room Air 10/28/24 06:59 10/28/24 07:00 10/28/24 07:00 Temperature 98.2 F Pulse Rate Pulse Rate [Pulse Oximeter] 106 H Pulse Rate [orthos tatic lying] Pulse Rate [orthos tatic sitting] Pulse Rate [orthos tatic standing] Respiratory Rate 20 20 Blood Pressure [Le ft Arm] Blood Pressure [or thostatic lying] Blood Pressure [or thostatic sitting] Blood Pressure [or thostatic standing ] Pulse Oximetry 87 L Oxygen Delivery [facility] Room Air 10/28/24 07:00 10/28/24 07:00 10/28/24 09:21 Temperature 102.1 F H 102.1 F H Pulse Rate 94 Pulse Rate [Pulse Oximeter] 106 H Pulse Rate [orthos tatic lying] Pulse Rate [orthos tatic sitting] Pulse Rate [orthos tatic standing] Respiratory Rate 20 Blood Pressure [Le ft Arm] 135/92 H Blood Pressure [or thostatic lying] Blood Pressure [or thostatic sitting] Blood Pressure [or thostatic standing ] Pulse Oximetry 87 L [facility] 10/28/24 11:00 Temperature 98.3 F Pulse Rate Pulse Rate [Pulse Oximeter] 94 Pulse Rate [orthos tatic lying] Pulse Rate [orthos tatic sitting] Pulse Rate [orthos tatic standing] Respiratory Rate 18 Blood Pressure [Le ft Arm] 111/70 Blood Pressure [or thostatic lying] Blood Pressure [or thostatic sitting] Blood Pressure [or thostatic standing ] Pulse Oximetry 90 Oxygen Delivery [facility] Room Air Documenting provider has reviewed patient's vital signs: yes Transfer Discharge Sum: Data Imaging CT Chest/Ab/Pelvis: Radiologist's impression: INDICATION: Fever, hypotension, hypoxia. Known DVT. Known colitis. COMPARISON: 10/22/2024, 10/23/2024 TECHNIQUE: CT chest, abdomen, and pelvis with contrast. Multiplanar axial, coronal, and sagittal reformats are included. MIP images to improve detection of pulmonary nodules are included. Intravenous contrast: 134 mL Isovue 370. FINDINGS: CHEST Airway: Expiratory appearance of the trachea. Lungs: Significant respiratory motion artifact. Expiratory appearance of the lungs. Bibasilar atelectasis. Small nodules could be obscured. There are no large areas of infarct or consolidation seen. No edema or emphysema. Pleura: There are trace bilateral pleural effusions that are new compared to prior. No loculation or pleural thickening. No pneumothorax. Lymph nodes: No thoracic adenopathy. Mediastinum: No pneumomediastinum. No mass. Heart and great vessels: No pericardial effusion. Cardiac chambers are mildly dilated. Scattered atherosclerotic plaques. No aortic aneurysm. Normal caliber of the main pulmonary artery. There are a few bilateral lower lobe pulmonary emboli again seen in a similar distribution. Thrombus burden is slightly decreased. No new pulmonary emboli seen. Chest wall: Normal. No masses. ABDOMEN AND PELVIS Liver: Normal. No mass. Gallbladder and bile ducts: Normal gallbladder. No bile duct dilation. Pancreas: Normal. Spleen: Normal. Adrenal glands: Normal. Kidneys: Normal parenchyma. No cyst or solid mass. No calculi. No urinary tract dilation. Urinary bladder: The urinary bladder is moderately distended. There is a tiny amount of air in the bladder that is probably related to prior catheterization. Pelvis: There is some streak artifact across the pelvis from the hip arthroplasty. No pelvic cyst or mass. Vessels: There are a few atherosclerotic vascular calcifications. No abdominal aortic aneurysm. The iliac arteries are patent. The mesenteric arteries are patent. The mesenteric and portal veins are patent. The IVC, common, and external iliac veins are all patent. Partially occlusive thrombus again noted in the right common femoral vein, proximal femoral vein, and greater saphenous vein. Bowel: No dilated or inflamed bowel. Normal appendix. Mild to moderate stool burden. Lymph nodes: No adenopathy. Peritoneum: No ascites or free air. Abdominal wall: Fat containing umbilical hernia. Mild abdominal wall anasarca. BONES: Right hip arthroplasty. No adjacent fluid collection. No acute or healing fractures. No focal bone lesions. IMPRESSION: 1. Very small bilateral pleural effusions are new compared to prior. 2. Decreased pulmonary embolus burden. No CT findings of acute right heart failure. 3. Unchanged appearance of the right common femoral, femoral, and greater saphenous deep and superficial vein thrombosis. No extension to involve the deep pelvic veins or IVC. 4. There is respiratory motion artifact throughout the lungs. 5. No obvious infectious source identified in the chest, abdomen, or pelvis. US - abdomen: Radiologist's impression: INDICATION: Elevated LFTs, evaluate for cirrhosis. TECHNIQUE: Ultrasound abdomen limited. Sonographic images of the right upper quadrant were obtained using welch-scale and color Doppler images. COMPARISON: Chest CT 10/23/2024. FINDINGS: Liver: Normal in size and echotexture. Normal contour. No suspicious masses. No intrahepatic biliary dilatation. Slightly dilated main portal vein measuring 1.6 cm Gallbladder: Filled with sludge. Normal wall thickness. No pericholecystic fluid. Negative sonographic Grey`s sign. Common bile duct: Non-dilated, measuring 4 mm. Pancreas: Unremarkable. Right kidney: Normal in size. Normal echotexture and cortex. No suspicious masses, stones, or hydronephrosis. Vasculature: Proximal abdominal aorta and IVC are unremarkable. IMPRESSION: 1. Gallbladder filled with biliary sludge. No evidence for cholecystitis. 2. Unremarkable liver with normal contour. No convincing sonographic evidence for cirrhosis. Transfer Discharge Sum: A/P Plan Cognitive capacity at transfer: Normal Functional capacity at transfer: uses cane/walker Overall status at transfer: patient is not back to baseline Discharge Plan Discharge Disposition: [facility] Date of Admission: 10/23/24 09:12 Attending Provider on Discharge: David Jones Primary Care Provider: Josefina Crum Discharge Orders: Transfer of Care to Other Hospital (ORDER); Ordered 10/28/24 Ordered By: David Jones
[2024-10-28] MEDS: POTASSIUM BICARB 25 MEQ EFFERVESCENT TAB 50 MEQ PO (13:55)
[2024-10-28 14:53] LABS: Slide Review Acceptable Review (Acceptable)
--- NOTE | 2024-10-28 17:36 | PC.NURSE ---
Discharge: Patient's VSS, RA, afebrile. Ambulating w/walker to BR and chair and hallway. Patient tolerating a reg. diet. IV intact, patent and SL. Patient's Tele, NSR w/bbb and occasional PVC's. Patient discharged at 1650 via non emergent transport to [facility]. Nurse to Nurse given to jose JIANG. Patient notified family members. Paperwork sent with EMS.
[2024-10-29 22:44] LABS: Cortisol 0 Min 3.2 ug/dL
[2024-11-02 14:31] LABS: C282Y Hemochromatosis Mutation Negative; H63D Hemochromatosis Mutation Negative; HFE PCR Specimen Whole Blood; S65C Hemochromatosis Mutation Negative
== END 2024-10-28 16:50 | disposition short-term general hospital (02) | DRG 643 ==
PROVIDERS: Family Medicine; Physician Assistant; Admitting Provider Family Medicine; PCP Family Medicine; Visit Provider Student in an Organized Health Care Education/Training Program
DX: E27.40 Unspecified adrenocortical insufficiency (principal); I26.94 Multiple subsegmental thrombotic pulmonary emboli without acute cor pulmonale; I82.411 Acute embolism and thrombosis of right femoral vein; E87.1 Hypo-osmolality and hyponatremia; E87.21 Acute metabolic acidosis; B17.10 Acute hepatitis C without hepatic coma; I82.421 Acute embolism and thrombosis of right iliac vein; B18.2 Chronic viral hepatitis C; E86.0 Dehydration; I95.1 Orthostatic hypotension; R19.7 Diarrhea, unspecified; D64.9 Anemia, unspecified; D69.59 Other secondary thrombocytopenia; E87.6 Hypokalemia; R74.01 Elevation of levels of liver transaminase levels; E66.9 Obesity, unspecified; Z68.39 Body mass index [BMI] 39.0-39.9, adult; H91.90 Unspecified hearing loss, unspecified ear; R79.89 Other specified abnormal findings of blood chemistry; R50.9 Fever, unspecified; E78.5 Hyperlipidemia, unspecified; I25.10 Atherosclerotic heart disease of native coronary artery without angina pectoris; Z96.641 Presence of right artificial hip joint; Z96.653 Presence of artificial knee joint, bilateral; Z86.73 Personal history of transient ischemic attack (TIA), and cerebral infarction without residual deficits; Z86.0101 Personal history of adenomatous and serrated colon polyps; Z86.19 Personal history of other infectious and parasitic diseases
CPT/HCPCS: 36415; 51701; 51798; 71260; 71275; 74177; 76705; 80048; 80053; 80076; 81001; 81003; 81256; 82088; 82270; 82330; 82533; 82728; 82803; 83036; 83540; 83550; 83605; 83735; 83880; 84145; 84244; 84443; 84484; 85025; 85045; 85610; 85651; 85730; 86140; 87040; 87086; 87631; 87804; 93005; 93306; 97116; 97161; 97165; 97530; 97535; A9270; G0378; G0379; J0834; J1100; J1650; J1720; J1940; J7030; J7050; J7120; J7512; Q9957; Q9967

== ENCOUNTER 2024-10-28 16:44 | Outpatient (CLI) | payer MEDICARE, SELFPAY | END 2024-10-28 16:45 | disposition home or self-care (01) | LOC: AMB 10-31 15:10 | PROVIDERS: PCP Family Medicine; Visit Provider Family Medicine | DX: I26.99 Other pulmonary embolism without acute cor pulmonale (principal); R50.9 Fever, unspecified; I95.1 Orthostatic hypotension | CPT/HCPCS: A0425; A0427 ==